=== PATIENT | male | born 1940 | race Caucasian/White ===

== ENCOUNTER 2018-05-02 09:03 | Outpatient (CLI) | payer MEDICARE, OTHER ==
[2018-05-02 10:15] LABS: CHOL/HDL RATIO 4.5 (<5.0); CHOLESTEROL 149 mg/dL; HDL CHOLESTEROL 33 mg/dL; LDL CHOLESTEROL,CALCULATED 94 mg/dL; LDL/HDL RATIO 2.8 (<3.6); VLDL CHOLESTEROL 22 mg/dL
[2018-05-02 10:17] LABS: HB2 TOTAL 16.1 g/dL; HEMOGLOBIN A1C 0.88 g/dL; HEMOGLOBIN A1C % 7.2 % (4.6-6.2)
== END 2018-05-02 09:04 | disposition home or self-care (01) ==
LOC: LAB 09:03
PROVIDERS: ATTEND Family Medicine
DX: E11.9 Type 2 diabetes mellitus without complications (principal)
CPT/HCPCS: 36415; 80061; 83036; 83721

== ENCOUNTER 2018-08-13 09:45 | Outpatient (CLI) | payer MEDICARE, OTHER ==
[2018-08-13 10:06] LABS: BASOPHILS % (AUTO) 0.7 %; EOSINOPHILS # (AUTO) 0.1 10^3/uL (0.0-0.7); EOSINOPHILS % (AUTO) 1.5 %; HGB - HEMOGLOBIN 15.1 g/dL (14.0-18.0); LYMPHOCYTES # (AUTO) 1.1 10^3/uL (1.5-3.5); LYMPHOCYTES % (AUTO) 15.8 %; MEAN CORPUSCULAR HEMOGLOBIN 30.1 pg (27.0-31.0); MEAN CORPUSCULAR HGB CONC 33.6 g/dL (32.0-36.0); MEAN CORPUSCULAR VOLUME 89.6 fL (80.0-94.0); MEAN PLATELET VOLUME 8.8 fL (7.4-11.4); MONOCYTES # (AUTO) 0.5 10^3/uL (0.0-1.0); MONOCYTES % (AUTO) 7.2 %; NEUTROPHILS # (AUTO) 5.1 10^3/uL (1.5-6.6); NEUTROPHILS % (AUTO) 74.8 %; PLT - PLATELET COUNT 215 10^3/uL (130-450); RED BLOOD COUNT 5.01 10^6/uL (4.70-6.10); RED CELL DISTRIBUTION WIDTH 14.3 % (12.0-15.0); WHITE BLOOD COUNT 6.8 x10^3/uL (4.8-10.8)
[2018-08-13 10:17] LABS: INR 1.1 (0.8-1.2); PT - PROTHROMBIN TIME 12.6 secs (9.9-12.6)
[2018-08-13 10:18] LABS: ALBUMIN 4.5 g/dL (3.2-5.5); ALBUMIN/GLOBULIN RATIO 1.7 (1.0-2.2); BILIRUBIN,TOTAL 1.3 mg/dL (0.2-1.0); CALCIUM 9.5 mg/dL (8.5-10.3); CREATININE 1.1 mg/dL (0.6-1.2); TOTAL PROTEIN 7.2 g/dL (6.7-8.2)
== END 2018-08-13 09:46 | disposition home or self-care (01) ==
LOC: LAB 09:45
PROVIDERS: ATTEND Internal Medicine Gastroenterology
DX: K75.4 Autoimmune hepatitis (principal); K74.60 Unspecified cirrhosis of liver
CPT/HCPCS: 36415; 80053; 82105; 85025; 85610

== ENCOUNTER 2018-12-09 08:24 | Outpatient (CLI) | payer MEDICARE, OTHER ==
[2018-12-09 10:03] LABS: ALBUMIN 4.3 g/dL (3.2-5.5); CALCIUM 9.8 mg/dL (8.5-10.3); CREATININE 1.4 mg/dL (0.6-1.2)
[2018-12-09 10:04] LABS: PHOSPHORUS 3.2 mg/dL (2.5-4.6)
[2018-12-09 10:23] LABS: HB2 TOTAL 15.7 g/dL; HEMOGLOBIN A1C 0.9 g/dL; HEMOGLOBIN A1C % 7.4 % (4.6-6.2)
== END 2018-12-09 08:25 | disposition home or self-care (01) ==
LOC: LAB.S 08:24
PROVIDERS: ATTEND Internal Medicine Endocrinology, Diabetes & Metabolism
DX: E11.9 Type 2 diabetes mellitus without complications (principal)
CPT/HCPCS: 36415; 80069; 83036

== ENCOUNTER 2019-02-28 10:08 | Outpatient (CLI) | payer MEDICARE, OTHER ==
[2019-02-28 18:28] LABS: HEMOGLOBIN A1C 0.9 g/dL; HEMOGLOBIN A1C % 7.6 % (4.6-6.2)
== END 2019-02-28 10:09 | disposition home or self-care (01) ==
LOC: LAB.S 10:08
PROVIDERS: ATTEND Internal Medicine Endocrinology, Diabetes & Metabolism
DX: E11.9 Type 2 diabetes mellitus without complications (principal)
CPT/HCPCS: 36415; 83036

== ENCOUNTER 2019-05-03 23:28 | Outpatient (CLI) | payer MEDICARE, OTHER | END 2019-05-03 23:29 | disposition short-term general hospital (02) | LOC: EMS 23:28 | PROVIDERS: ATTEND Surgery | DX: R11.10 Vomiting, unspecified (principal); R50.9 Fever, unspecified; R53.1 Weakness; R41.82 Altered mental status, unspecified | CPT/HCPCS: A0425; A0427 ==

== ENCOUNTER 2022-04-28 11:21 | Emergency (ER) | payer MEDICARE, OTHER ==
[2022-04-28 13:43] LABS: BASOPHILS # (AUTO) 0.1 10^3/uL (0.0-0.1); BASOPHILS % (AUTO) 0.6 %; EOSINOPHILS # (AUTO) 0.1 10^3/uL (0.0-0.7); EOSINOPHILS % (AUTO) 1.5 %; HCT - HEMATOCRIT 41.4 % (42.0-52.0); HGB - HEMOGLOBIN 13.6 g/dL (14.0-18.0); LYMPHOCYTES # (AUTO) 1.5 10^3/uL (1.5-3.5); LYMPHOCYTES % (AUTO) 17.2 %; MEAN CORPUSCULAR HGB CONC 32.9 g/dL (32.0-36.0); MEAN CORPUSCULAR VOLUME 88.3 fL (80.0-94.0); MEAN PLATELET VOLUME 10.6 fL (7.4-11.4); MONOCYTES # (AUTO) 1.1 10^3/uL (0.0-1.0); NEUTROPHILS # (AUTO) 6.1 10^3/uL (1.5-6.6); NEUTROPHILS % (AUTO) 68.3 %; PLT - PLATELET COUNT 235 10^3/uL (130-450); RED BLOOD COUNT 4.69 10^6/uL (4.70-6.10); RED CELL DISTRIBUTION WIDTH 12.6 % (12.0-15.0)
[2022-04-28 13:57] LABS: ALBUMIN 4.2 g/dL (3.2-5.5); ALBUMIN/GLOBULIN RATIO 1.3 (1.0-2.2); BILIRUBIN,TOTAL 0.8 mg/dL (0.2-1.0); CALCIUM 10.1 mg/dL (8.5-10.3); CREATININE 1.3 mg/dL (0.6-1.2); POTASSIUM 4.8 mmol/L (3.5-5.0); TOTAL PROTEIN 7.4 g/dL (6.7-8.2)
[2022-04-28 14:37] LABS: B. PARAPERTUSSIS- RESP PCR PAN NOT DETECTED; CORONAVIRUS 229E-RESP PCR NOT DETECTED; CORONAVIRUS HKU1-RESP PCR NOT DETECTED; CORONAVIRUS NL63-RESP PCR NOT DETECTED; CORONAVIRUS OC43-RESP PCR NOT DETECTED; HUMAN METAPNEUMOVIRUS NOT DETECTED; INFLUENZA A- RESP PCR PANEL NOT DETECTED; INFLUENZA B - RESP PCR PANEL NOT DETECTED; PARAINFLUENZA VIRUS 1 NOT DETECTED; PARAINFLUENZA VIRUS 2 NOT DETECTED; PARAINFLUENZA VIRUS 3 NOT DETECTED; PARAINFLUENZA VIRUS 4 NOT DETECTED; RHINOVIRUS/ENTEROVIRUS DETECTED; RSV- RESP PCR PANEL NOT DETECTED; SARS-CoV-2 -RESP PCR PANEL NOT DETECTED
[2022-04-28 14:39] LABS: B. PERTUSSIS- RESP PCR PANEL NOT DETECTED; C. PNEUMONIAE- RESP PCR PANEL NOT DETECTED; M. PNEUMONIAE- RESP PCR PANEL NOT DETECTED
[2022-04-28] MEDS ORDERED: SODIUM CHLORIDE 0.9% 1,000 ML IV STA (14:47)
--- NOTE | 2022-04-28 14:53 | ED Physician Documentation ---
History of Present Illness - Stated complaint Stated Complaint: DIZZY/SHAKY - Chief complaint Chief Complaint: Resp - History obtained from History obtained from: Patient, Family - History of Present Illness Timing: How many weeks ago (3) Pain level max: 0 Pain level now: 0 - Additonal information Additional information: Patient is a 82-year-old male brought in by family today for cough x3 weeks. Not having any pain. No fevers. No chills. Family states that he was dizzy when he stood up today and family states that he has been "out of it". Nothing makes it better or worse. No abdominal pain. No vomiting. No diarrhea. Review of Systems Constitutional: denies: Fever, Chills Nose: reports: Rhinorrhea / runny nose, Congestion Throat: denies: Sore throat Cardiac: denies: Chest pain / pressure Respiratory: reports: Cough. denies: Dyspnea GI: denies: Abdominal Pain, Nausea, Vomiting, Diarrhea Skin: denies: Rash Musculoskeletal: denies: Neck pain, Back pain Neurologic: denies: Headache PD PAST MEDICAL HISTORY - Past Medical History Cardiovascular: Hypertension Respiratory: None Endocrine/Autoimmune: Type 2 diabetes GI: Other : None Psych: None Musculoskeletal: None Derm: Other - Past Surgical History Past Surgical History: Yes Derm: Skin cancer surgery - Present Medications Home Medications: Ambulatory Orders Medication Instructions Recorded Confirmed Aspirin [Aspir 81] 81 mg PO DAILY 02/23/14 01/26/15 Insulin Glargine [Lantus Solostar] 8 units SUBQ DAILY 02/23/14 01/26/15 Simvastatin 20 mg PO DAILY 02/23/14 01/26/15 Telmisartan/Amlodipine 80 mg PO DAILY 02/23/14 01/26/15 [Telmisartan-Amlodipine 80-5 mg] azaTHIOprine [Azathioprine] 50 mg PO DAILY 02/23/14 01/26/15 hydroCHLOROthiazide 25 mg PO DAILY 02/23/14 01/26/15 [Hydrochlorothiazide] Insulin Aspart [Novolog Flexpen] 0 units SUBQ TIDACHS 02/24/14 01/26/15 Cephalexin [Keflex] 500 mg PO Q6H #28 capsule 01/26/15 - Allergies Allergies/Adverse Reactions: Allergies Allergy/AdvReac Type Severity Reaction Status Date / Time No Known Drug Allergies Allergy Verified 04/28/22 13:04 - Social History Does the pt smoke?: No Smoking Status: Never smoker Does the pt drink ETOH?: No Does the pt have substance abuse?: No - Immunizations Immunizations are current?: Yes - POLST Patient has POLST: Yes PD ED PE NORMAL - Vitals Vital signs reviewed: Yes - General General: Alert and oriented X 3, No acute distress - HEENT HEENT: PERRL, Ears normal, Moist mucous membranes, Pharynx benign - Neck Neck: Supple, no meningeal sign - Cardiac Cardiac: RRR, Strong equal pulses - Respiratory Respiratory: No respiratory distress, Clear bilaterally - Abdomen Abdomen: Soft, Non tender, Non distended - Derm Derm: Warm and dry - Neuro Neuro: Alert and oriented X 3 - Psych Psych: Normal mood, Normal affect Results - Vitals Vitals: Vital Signs - 24 hr 04/28/22 04/28/22 04/28/22 13:01 15:14 16:37 Temperature 36.8 C Heart Rate 61 59 L 78 Respiratory 18 18 18 Rate Blood Pressure 144/72 H 137/61 H 137/61 H O2 Saturation 98 100 96 Oxygen O2 Source Room air - EKG (time done) 1308 Rate: Rate (enter#) (61) Rhythm: Paced (atrial) [place]: Anterior hemiblock (LAFB) Intervals: RBBB - Labs Labs: Laboratory Tests 04/28/22 04/28/22 04/28/22 13:10 13:13 13:39 WBC 9.0 RBC 4.69 L Hgb 13.6 L Hct 41.4 L MCV 88.3 MCH 29.0 MCHC 32.9 RDW 12.6 Plt Count 235 MPV 10.6 Neut # (Auto) 6.1 Lymph # (Auto) 1.5 [place] # (Auto) 1.1 H Eos # (Auto) 0.1 Baso # (Auto) 0.1 Absolute Nucleated RBC 0.00 Nucleated RBC % 0.0 Sodium Potassium Chloride Carbon Dioxide Anion Gap BUN Creatinine Estimated GFR (MDRD) Glucose POC Whole Bld Glucose 200 H Calcium Total Bilirubin AST ALT Alkaline Phosphatase Total Protein Albumin Globulin Albumin/Globulin Ratio Lipase Nasal Adenovirus (PCR) NOT DETECTED Nasal B. parapertussis DNA (PCR) NOT DETECTED Nasal Coronavir 229E PCR NOT DETECTED Nasal Coronavir HKU1 PCR NOT DETECTED Nasal Coronavir NL63 PCR NOT DETECTED Nasal Coronavir OC43 PCR NOT DETECTED Nasal Enterovir/Rhinovir PCR DETECTED A Nasal Influenza B PCR NOT DETECTED Nasal Influenza A PCR NOT DETECTED Nasal Parainfluen 1 PCR NOT DETECTED Nasal Parainfluen 2 PCR NOT DETECTED Nasal Parainfluen 3 PCR NOT DETECTED Nasal Parainfluen 4 PCR NOT DETECTED Nasal RSV (PCR) NOT DETECTED Nasal B.pertussis DNA PCR NOT DETECTED Nasal C.pneumoniae (PCR) NOT DETECTED Nam Human Metapneumo PCR NOT DETECTED Nasal M.pneumoniae (PCR) NOT DETECTED Nasal SARS-CoV-2 (PCR) NOT DETECTED 04/28/22 13:39 WBC RBC Hgb Hct MCV MCH MCHC RDW Plt Count MPV Neut # (Auto) Lymph # (Auto) [place] # (Auto) Eos # (Auto) Baso # (Auto) Absolute Nucleated RBC Nucleated RBC % Sodium 134 L Potassium 4.8 Chloride 95 L Carbon Dioxide 28 Anion Gap 11.0 BUN 20 Creatinine 1.3 H Estimated GFR (MDRD) 53 L Glucose 202 H POC Whole Bld Glucose Calcium 10.1 Total Bilirubin 0.8 AST 23 ALT 29 Alkaline Phosphatase 63 Total Protein 7.4 Albumin 4.2 Globulin 3.2 Albumin/Globulin Ratio 1.3 Lipase 25 Nasal Adenovirus (PCR) Nasal B. parapertussis DNA (PCR) Nasal Coronavir 229E PCR Nasal Coronavir HKU1 PCR Nasal Coronavir NL63 PCR Nasal Coronavir OC43 PCR Nasal Enterovir/Rhinovir PCR Nasal Influenza B PCR Nasal Influenza A PCR Nasal Parainfluen 1 PCR Nasal Parainfluen 2 PCR Nasal Parainfluen 3 PCR Nasal Parainfluen 4 PCR Nasal RSV (PCR) Nasal B.pertussis DNA PCR Nasal C.pneumoniae (PCR) Nam Human Metapneumo PCR Nasal M.pneumoniae (PCR) Nasal SARS-CoV-2 (PCR) - Rads (name of study) Chest x-ray Radiology: Final report received, EMP read contemporaneously, See rad report PD MEDICAL DECISION MAKING - ED course Complexity details: reviewed results, re-evaluated patient, considered differential, d/w patient, d/w family ED course: No acute abnormalities on chest x-ray. Patient is positive for rhinovirus. No significant laboratory abnormalities. Eating and drinking without difficulty here. Patient is well-appearing, nontoxic. Afebrile. No hypoxia. No respiratory distress. Patient and family counseled regarding signs and symptoms for which I believe and urgent re-evaluation would be necessary. Patient with good understanding of and agreement to plan and is comfortable going home at this time This document was made in part using voice recognition software. While efforts are made to proofread this document, sound alike and grammatical errors may occur. Departure - Departure Disposition: 01 Home, Self Care Clinical Impression: Rhinovirus, Dehydration Condition: Good Instructions: ED Viral Syndrome Follow-Up: AMINAH MACILE MD [Primary Care Provider] - As Needed Comments: Your x-ray does not show any acute abnormalities today. You are positive for rhinovirus/enterovirus. Please follow-up with your doctor for further care. Make sure you are drinking plenty of fluids. Return if you worsen. Discharge Date/Time: 04/28/22 16:37
--- NOTE | 2022-04-28 15:13 | XRAY Report ---
PROCEDURE: Chest 2 View X-Ray INDICATIONS: cough x3 weeks TECHNIQUE: 2 views of the chest were acquired. COMPARISON: CXR 02/24/2014. FINDINGS: Surgical changes and devices: Left pacemaker with right atrial and right ventricular leads. Lungs and pleura: No pleural effusions or pneumothorax. Lungs are clear. No consolidation. Mediastinum: Mediastinal contours are unchanged. Heart size is normal. Bones and chest wall: No suspicious bony abnormalities. Soft tissues appear unremarkable. IMPRESSION: No acute cardiopulmonary abnormality. CT of the chest could be considered for further evaluation. Reviewed by: Marc Garcia MD on 04/28/2022 3:11 PM PST Approved by: Marc Garcia MD on 04/28/2022 3:11 PM PST Station ID: [id number]
[2022-04-28 15:42] VITALS: BP 137/61
== END 2022-04-28 16:37 | disposition home or self-care (01) ==
LOC: ED 11:21
DX: B34.8 Other viral infections of unspecified site (principal); E86.0 Dehydration; R42 Dizziness and giddiness; I45.2 Bifascicular block; Z95.0 Presence of cardiac pacemaker; I10 Essential (primary) hypertension; E11.9 Type 2 diabetes mellitus without complications; Z79.4 Long term (current) use of insulin; Z79.82 Long term (current) use of aspirin
CPT/HCPCS: 36415; 80053; 83690; 85025; 87633; 93005; 96360; 99283

== ENCOUNTER 2023-01-10 14:52 | Emergency (ER) | payer MEDICARE, OTHER ==
[2023-01-10 15:29] LABS: BASOPHILS % (AUTO) 0.5 %; EOSINOPHILS # (AUTO) 0.1 10^3/uL (0.0-0.7); EOSINOPHILS % (AUTO) 2.2 %; HCT - HEMATOCRIT 43.3 % (42.0-52.0); HGB - HEMOGLOBIN 14.1 g/dL (14.0-18.0); LYMPHOCYTES # (AUTO) 1.5 10^3/uL (1.5-3.5); LYMPHOCYTES % (AUTO) 24.7 %; MEAN CORPUSCULAR HEMOGLOBIN 29.1 pg (27.0-31.0); MEAN CORPUSCULAR HGB CONC 32.6 g/dL (32.0-36.0); MEAN CORPUSCULAR VOLUME 89.5 fL (80.0-94.0); MEAN PLATELET VOLUME 11.2 fL (7.4-11.4); MONOCYTES # (AUTO) 0.5 10^3/uL (0.0-1.0); MONOCYTES % (AUTO) 8.8 %; NEUTROPHILS # (AUTO) 3.7 10^3/uL (1.5-6.6); NEUTROPHILS % (AUTO) 63.1 %; PLT - PLATELET COUNT 185 10^3/uL (130-450); RED BLOOD COUNT 4.84 10^6/uL (4.70-6.10); RED CELL DISTRIBUTION WIDTH 13.6 % (12.0-15.0); WHITE BLOOD COUNT 5.9 x10^3/uL (4.8-10.8)
[2023-01-10 15:49] LABS: ALBUMIN 4.4 g/dL (3.2-5.5); ALBUMIN/GLOBULIN RATIO 1.9 (1.0-2.2); BILIRUBIN,TOTAL 0.6 mg/dL (0.2-1.0); CREATININE 1.4 mg/dL (0.6-1.3); POTASSIUM 3.7 mmol/L (3.5-4.5); TOTAL PROTEIN 6.7 g/dL (6.4-8.9)
[2023-01-10 15:52] LABS: TROPONIN I HIGH SENSITIVITY 6.3 ng/L (2.3-19.7)
--- NOTE | 2023-01-10 15:52 | XRAY Report ---
PROCEDURE: Chest 1 View X-Ray INDICATIONS: Chest Pain TECHNIQUE: One view of the chest was acquired. COMPARISON: Chest radiographs 04/28/2022. FINDINGS: Surgical changes and devices: A cardiac pacemaker is seen with pulse generator in the left chest. Lungs and pleura: No pleural effusions or pneumothorax. Lungs are clear. Mediastinum: Mediastinal contours appear normal. Heart size is normal. Bones and chest wall: No suspicious bony lesions. Overlying soft tissues appear unremarkable. IMPRESSION: No acute cardiopulmonary process. Reviewed by: Dwayne Sandoval MD on 01/10/2023 3:51 PM PDT Approved by: Dwayne Sandoval MD on 01/10/2023 3:51 PM PDT Station ID: [id number]
[2023-01-10] MEDS ORDERED: iohexoL-300 100 ML VIAL IVP ONE (16:17)
--- NOTE | 2023-01-10 16:30 | ED Physician Documentation ---
PD HPI FOCAL NEURO - Stated complaint Stated Complaint: ARM NUMBNESS - Chief complaint Chief Complaint: Cardiac - History obtained from History obtained from: Patient - History of Present Illness Associated symptoms: No: Headache, Nausea / vomiting, Seizure, Syncope, Fall, Head injury, Chest pain, Neck pain, Back pain, Fever Contributing factors: positive: Anticoagulated (eliquis) Baseline status: positive: A&OX3, ambulatory, indep - Additional information Additional information: 82-year-old male states that he woke up from a nap and felt that his eyelids were vibrating and his chest was vibrating. He states that it felt like his left arm was cold but did not have any numbness or weakness. No speech di fficulties. No facial droop. He states it lasted for a few minutes and then resolved. He is currently asymptomatic. He states he thinks he "had an atrial fibrillation event". He states he has never had atrial fibrillation in the past. He does have a pacemaker. No headache. No trauma. No fevers. No chills. No recent illnesses. Currently fully asymptomatic. Review of Systems Constitutional: denies: Fever, Chills Respiratory: denies: Cough GI: denies: Nausea, Vomiting, Diarrhea Skin: denies: Rash Musculoskeletal: denies: Neck pain, Back pain Neurologic: denies: Focal weakness, Numbness, Headache PD PAST MEDICAL HISTORY - Past Medical History Cardiovascular: Hypertension Respiratory: None Endocrine/Autoimmune: Type 2 diabetes GI: Other : None Psych: None Musculoskeletal: None Derm: Other - Past Surgical History Past Surgical History: Yes Derm: Skin cancer surgery - Present Medications Home Medications: Ambulatory Orders Medication Instructions Recorded Confirmed Insulin Glargine [Lantus Solostar] 26 units SUBQ HS 02/23/14 01/10/23 Insulin Aspart [Novolog Flexpen] 0 units SUBQ TIDACHS 02/24/14 01/10/23 Apixaban [Eliquis] 5 mg PO BID 01/10/23 01/10/23 Metoprolol Tartrate [Lopressor] 25 mg PO BID 01/10/23 01/10/23 Rosuvastatin Calcium 20 mg PO HS 01/10/23 01/10/23 Tamsulosin [Flomax] 1 cap PO 01/10/23 01/10/23 - Allergies Allergies/Adverse Reactions: Allergies Allergy/AdvReac Type Severity Reaction Status Date / Time No Known Drug Allergies Allergy Verified 01/10/23 15:25 - Social History Does the pt smoke?: No Smoking Status: Never smoker Does the pt drink ETOH?: No Does the pt have substance abuse?: No - Immunizations Immunizations are current?: Yes - POLST Patient has POLST: Yes PD ED PE NORMAL - Vitals Vital signs reviewed: Yes - General General: Alert and oriented X 3, No acute distress - HEENT HEENT: Atraumatic, PERRL, EOMI, Moist mucous membranes - Neck Neck: Supple, no meningeal sign - Cardiac Cardiac: RRR, Strong equal pulses - Respiratory Respiratory: No respiratory distress, Clear bilaterally - Abdomen Abdomen: Soft, Non tender, Non distended - Back Back: No CVA TTP, No spinal TTP - Derm Derm: Warm and dry - Extremities Extremities: No edema, No calf tenderness / cord, Other (arms are equal temperature) - Neuro Neuro: Alert and oriented X 3, report specialist 2-12 intact, No motor deficit, No sensory deficit, Normal speech Eye Opening: Spontaneous Motor: Obeys Commands Verbal: Oriented GCS Score: 15 - Psych Psych: Normal mood, Normal affect NIHSS - Time Time: 15:10 - Level of Consciousness Level of consciousness: (0) Alert, Keenly responsive LOC Questions: (0) Answers both Q's correct LOC Commands: (0) Performs both correctly - Gaze Best Gaze: (0) Normal - Visual Visual: (0) No loss - Facial Palsy Facial Palsy: (0) Normal, symmetrical movement - Motor Arms (both separate) Motor Arm (right): (0) No drift Motor Arm (left): (0) No drift - Motor Legs (both separate) Motor Leg (right): (0) No drift Motor Leg (left): (0) No drift - Limb Ataxia Limb Ataxia: (0) Absent - Sensory Sensory: (0) Normal - Best Language Best Language: (0) No aphasia - Dysarthria Dysarthria: (0) Normal - Extinction and Inattention (formally neg Extinction and inattention: (0) No abnormality - Total Score/Results Total Score/Result: 0 Results - Vitals Vitals: Vital Signs - 24 hr 01/10/23 01/10/23 01/10/23 14:56 15:05 15:30 Temperature 37.0 C Heart Rate 61 69 66 Respiratory 18 17 14 Rate Blood Pressure 167/81 H 188/68 H 164/83 H O2 Saturation 97 100 97 01/10/23 17:23 Temperature Heart Rate 74 Respiratory 16 Rate Blood Pressure 151/73 H O2 Saturation 100 Oxygen O2 Source Room air - EKG (time done) 1805 EKG releavant findings:: EKG personally interpreted by author of this note. Relevant findings are: Rate: Rate (enter#) (81) Rhythm: Paced - Labs Labs: Laboratory Tests 01/10/23 01/10/23 15:14 15:14 WBC 5.9 RBC 4.84 Hgb 14.1 Hct 43.3 MCV 89.5 MCH 29.1 MCHC 32.6 RDW 13.6 Plt Count 185 MPV 11.2 Neut # (Auto) 3.7 Lymph # (Auto) 1.5 [place] # (Auto) 0.5 Eos # (Auto) 0.1 Baso # (Auto) 0.0 Absolute Nucleated RBC 0.00 Nucleated RBC % 0.0 Sodium 137 Potassium 3.7 Chloride 103 Carbon Dioxide 31 Anion Gap 3.0 L BUN 22 H Creatinine 1.4 H Estimated GFR (MDRD) 49 L Glucose 175 H Calcium 10.0 Total Bilirubin 0.6 AST 19 ALT 16 Alkaline Phosphatase 59 Troponin I High Sens 6.3 Total Protein 6.7 Albumin 4.4 Globulin 2.3 Albumin/Globulin Ratio 1.9 Lipase 17 - Rads (name of study) head CT Relevant Findings:: Final report received, See rad report PD Medical Decision Making - ED course Complexity details: reviewed results, re-evaluated patient, considered differential, d/w patient ED course: Patient with a fluttering vibration in his chest and eyelids earlier today. He also states that his left arm was cold. Symptoms all resolved within a few minutes. Asymptomatic here. Pacemaker was interrogated with no abnormalities found. No evidence of atrial fibrillation or flutter. Labs are normal, CT head and angiogram of the head and neck are normal. Troponin is negative. Unclear etiology of his symptoms. Will have him follow-up with his doctor for further care and continue his current medications. Patient counseled regarding signs and symptoms for which I believe and urgent re-evaluation would be necessary. Patient with good understanding of and agreement to plan and is comfortable going home at this time This document was made in part using voice recognition software. While efforts are made to proofread this document, sound alike and grammatical errors may occur. Departure - Departure Disposition: 01 Home, Self Care Clinical Impression: Palpitations, Paresthesia Condition: Good Instructions: ED Palpitations, ED Paraesthesias Follow-Up: AMINAH MACIEL MD [Primary Care Provider] - Within 1 week Comments: The cause of your symptoms is unclear today. Your testing does not show any acute abnormalities. Please follow-up with your doctor for further care. There are no acute findings on your CT scans, laboratory testing, pacemaker interrogation or EKG. Forms: PCP List Discharge Date/Time: 01/10/23 17:25
--- NOTE | 2023-01-10 16:46 | CT Report ---
PROCEDURE: HEAD WO INDICATIONS: L arm "cool" TECHNIQUE: Noncontrast 4.5 mm thick angled axial sections acquired from the foramen magnum to the vertex. For r adiation dose reduction, the following was used: automated exposure control, adjustment of mA and/or kV according to patient size. COMPARISON: None. FINDINGS: Image quality: Excellent. CSF spaces: Basal cisterns are patent. No extra-axial fluid collections. Ventricles are normal in size and shape. Brain: No midline shift. No intracranial masses or hemorrhage. Garcia-white matter interface is norm al. Age-related volume loss and moderate small vessel ischemic change. Skull and face: Calvarium and visualized facial bones are intact, without suspicious lesions. Sinuses: Visualized sinuses and mastoids are clear. IMPRESSION: 1. Age-related volume loss and moderate small vessel ischemic change. 2. No acute intracranial abnormality. Reviewed by: Itz Monroe MD on 01/10/2023 4:45 PM PDT Approved by: Itz Monroe MD on 01/10/2023 4:45 PM PDT Station ID: [id number]
--- NOTE | 2023-01-10 17:01 | CT Report ---
PROCEDURE: CT Angio Head/Neck INDICATIONS: L arm "cool" TECHNIQUE: Pre-contrast 4.5 mm thick sections acquired from the foramen magnum to the vertex. After the adminis tration of intravenous contrast, 1 mm thick sections acquired from the aortic arch through the [place] of [place]. Post-contrast 4.5 mm thick sections then re-acquired from the foramen magnum to the vert ex. 3-dimensional gyahwpr-ymtigzhgy-lwwfamlseo (MIP) and/or volume rendering reformats were acquired of the central intracranial vasculature and neck separately. For radiation dose reduction, the foll owing was used: automated exposure control, adjustment of mA and/or kV according to patient size. CONTRAST: See chart notes COMPARISON: CT head without contrast from today FINDINGS: Image quality: Excellent. BRAIN: CSF spaces: Ventricles are normal in size and shape. Basal cisterns are patent. No extra-axial flu id collections. Brain: No midline shift. No intracranial bleeds or masses. Garcia-white matter interface appears int act. Age-related volume loss and moderate small vessel ischemic change. Skull and face: Calvarium and facial bones appear intact, without suspicious lesions. Orbits appear normal. Sinuses: Sinuses and mastoids are clear. HEAD CT ANGIOGRAPHY: Anterior circulation: Intracranial internal carotid arteries are normal in size and flow. The flow within the paired anterior cerebral arteries is normal and symmetric. The flow within the middle cer ebral arteries is normal and symmetric. The anterior communicating artery is seen. No aneurysms are seen. Posterior circulation: Visualized portions of the vertebral arteries demonstrate normal caliber, and join to form a normal appearing basilar artery. Flow within the posterior cerebral arteries is norm al and symmetric. No aneurysms are seen. NECK CT ANGIOGRAPHY: Carotid system: The great vessels demonstrate a conventional anatomy as they arise from the aortic a rch. The origins of the common carotid arteries appear patent. The common carotid arteries demonstr ate normal caliber and courses. The bifurcation regions are both widely patent. The internal caroti d arteries demonstrate normal calibers and courses. Bilateral proximal internal carotid artery plaque without stenosis. Posterior circulation: The origins of the vertebral arteries both appear widely patent. The more lin perior extracranial portions of both vertebral arteries also demonstrate normal courses and calibers. They join to form a normal appearing basilar artery. Soft tissues: Visualized neck soft tissues demonstrate no suspicious abnormalities. Bones: No suspicious bony lesions. Visualized cervical spine appears normally aligned. IMPRESSION: 1. Age-related volume loss and moderate small vessel ischemic change. 2. No acute intracranial process. 3. Unremarkable CTA head. No stenosis, aneurysm, occlusion, or focal filling defect. 4. No carotid stenosis. The estimate of stenosis included in the report of the imaging study was calculated using the NASCET method Reviewed by: Itz Monroe MD on 01/10/2023 5:00 PM PDT Approved by: Itz Monroe MD on 01/10/2023 5:00 PM PDT Station ID: [id number]
[2023-01-10 17:26] VITALS: BP 151/73; O2SAT 100
== END 2023-01-10 17:25 | disposition home or self-care (01) ==
LOC: ED 14:52
DX: R20.0 Anesthesia of skin (principal); R00.2 Palpitations; I10 Essential (primary) hypertension; E11.9 Type 2 diabetes mellitus without complications; Z79.4 Long term (current) use of insulin
CPT/HCPCS: 36415; 70450; 70496; 70498; 71045; 80053; 83690; 84484; 85025; 93005; 99283; 99284; Q9967

== ENCOUNTER 2023-10-09 18:35 | Outpatient (CLI) | payer MEDICARE, OTHER | END 2023-10-09 23:59 | disposition critical access hospital (66) | LOC: EMS 18:35 | DX: R25.1 Tremor, unspecified (principal); Z86.19 Personal history of other infectious and parasitic diseases; E11.9 Type 2 diabetes mellitus without complications; R11.2 Nausea with vomiting, unspecified | CPT/HCPCS: A0425; A0429 ==

== ENCOUNTER 2023-10-09 19:07 | Emergency (ER) | payer MEDICARE, OTHER ==
--- NOTE | 2023-10-09 19:24 | ED Physician Documentation ---
History of Present Illness - Stated complaint Stated Complaint: UNCONTROLLED SHIVERING - Chief complaint Chief Complaint: General - History obtained from History obtained from: Patient, Family, EMS - History of Present Illness Timing: Today Pain level max: 0 Pain level now: 0 - Additonal information Additional information: 83-year-old male to the emergency department stating that he feels like he "has sepsis". When asked what that means to him he states that he felt lightheaded earlier today like things were spinning and had shaking. He states he is not having pain anywhere but now just feels nauseated. His states that he has been coughing frequently. He states he has a "mild cough". He states that he has had sepsis twice in the past, the last time was due to an infected gallbladder which has since been removed. He does have a pacemaker in the left upper chest. No urinary symptoms. No abdominal pain. Feels mildly nauseated now. Does not feel like he is spinning anymore. No fevers at home. Review of Systems Constitutional: denies: Fever, Chills Nose: reports: Rhinorrhea / runny nose, Congestion Cardiac: denies: Chest pain / pressure, Palpitations Respiratory: reports: Cough. denies: Dyspnea, Wheezing GI: denies: Nausea, Vomiting, Diarrhea Skin: denies: Rash Musculoskeletal: denies: Neck pain, Back pain Neurologic: denies: Headache PD PAST MEDICAL HISTORY - Past Medical History Cardiovascular: Hypertension Respiratory: None Endocrine/Autoimmune: Type 2 diabetes GI: Other : None Psych: None Musculoskeletal: None Derm: Other - Past Surgical History Past Surgical History: Yes General: Cholecystectomy Cardiovascular: Pacemaker Derm: Skin cancer surgery - Present Medications Home Medications: Ambulatory Orders Medication Instructions Recorded Confirmed Insulin Glargine [Lantus Solostar] 26 units SUBQ 02/23/14 01/10/23 Insulin Aspart [Novolog Flexpen] 0 units SUBQ TIDACHS 02/24/14 01/10/23 Apixaban [Eliquis] 5 mg PO BID 01/10/23 01/10/23 Metoprolol Tartrate [Lopressor] 25 mg PO BID 01/10/23 01/10/23 Rosuvastatin Calcium 20 mg PO 01/10/23 01/10/23 Tamsulosin [Flomax] 1 cap PO 01/10/23 01/10/23 - Allergies Allergies/Adverse Reactions: Allergies Allergy/AdvReac Type Severity Reaction Status Date / Time No Known Drug Allergies Allergy Verified 10/09/23 19:21 - Social History Does the pt smoke?: No Smoking Status: Never smoker Does the pt drink ETOH?: No Does the pt have substance abuse?: No - Immunizations Immunizations are current?: Yes - POLST Patient has POLST: Yes PD ED PE NORMAL - Vitals Vital signs reviewed: Yes - General General: Alert and oriented X 3, No acute distress - HEENT HEENT: PERRL, Moist mucous membranes - Neck Neck: Supple, no meningeal sign - Cardiac Cardiac: RRR, Strong equal pulses - Respiratory Respiratory: No respiratory distress, Clear bilaterally - Abdomen Abdomen: Soft, Non tender, Non distended - Derm Derm: Warm and dry - Neuro Neuro: Alert and oriented X 3 - Psych Psych: Normal mood, Normal affect Results - Vitals Vitals: Vital Signs - 24 hr 10/09/23 19:17 Temperature 37.5 C Heart Rate 64 Respiratory 18 Rate Blood Pressure 123/86 H O2 Saturation 97 Oxygen O2 Source Room air - Labs Labs: Laboratory Tests 10/09/23 10/09/23 10/09/23 19:23 19:31 19:31 WBC 2.7 L RBC 5.21 Hgb 15.4 Hct 46.5 MCV 89.3 MCH 29.6 MCHC 33.1 RDW 13.7 Plt Count 153 MPV 10.9 Neut # (Auto) Not Reportable Lymph # (Auto) Not Reportable [place] # (Auto) Not Reportable Eos # (Auto) Not Reportable Baso # (Auto) Not Reportable Absolute Nucleated RBC Not Reportable Total Counted 100 Band Neuts % (Manual) 9 Abnorm Lymph % (Manual) 0 Nucleated RBC % Not Reportable Neutrophils # (Manual) 2.5 Lymphocytes # (Manual) 0.2 L Monocytes # (Manual) 0.0 Eosinophils # (Manual) 0.0 Basophils # (Manual) 0.0 Differential Comment MANUAL DIFFERENTIAL WBC Morphology 1+ HYPERSEG NEUT Platelet Estimate NORMAL (130-450,000) Platelet Morphology NORMAL APPEARANCE RBC Morph Micro Appear NORMAL APPEARANCE PT 14.0 H INR 1.3 H APTT 24.3 L Sodium Potassium Chloride Carbon Dioxide Anion Gap BUN Creatinine Estimated GFR (MDRD) Glucose Lactic Acid Calcium Total Bilirubin AST ALT Alkaline Phosphatase Total Protein Albumin Globulin Albumin/Globulin Ratio Lipase Urine Color Urine Clarity Urine pH Ur Specific [place] Urine Protein Urine Glucose (UA) Urine Ketones Urine Occult Blood Urine Nitrite Urine Bilirubin Urine Urobilinogen Ur Leukocyte Esterase Ur Microscopic Review Urine Culture Comments Nasal Adenovirus (PCR) NOT DETECTED Nasal B. parapertussis DNA (PCR) NOT DETECTED Nasal Coronavir 229E PCR NOT DETECTED Nasal Coronavir HKU1 PCR NOT DETECTED Nasal Coronavir NL63 PCR NOT DETECTED Nasal Coronavir OC43 PCR NOT DETECTED Nasal Enterovir/Rhinovir PCR NOT DETECTED Nasal Influenza B PCR NOT DETECTED Nasal Influenza A PCR NOT DETECTED Nasal Parainfluen 1 PCR NOT DETECTED Nasal Parainfluen 2 PCR NOT DETECTED Nasal Parainfluen 3 PCR NOT DETECTED Nasal Parainfluen 4 PCR NOT DETECTED Nasal RSV (PCR) NOT DETECTED Nasal B.pertussis DNA PCR NOT DETECTED Nasal C.pneumoniae (PCR) NOT DETECTED Nam Human Metapneumo PCR NOT DETECTED Nasal M.pneumoniae (PCR) NOT DETECTED Nasal SARS-CoV-2 (PCR) NOT DETECTED 10/09/23 10/09/23 10/09/23 19:31 19:31 20:16 WBC RBC Hgb Hct MCV MCH MCHC RDW Plt Count MPV Neut # (Auto) Lymph # (Auto) [place] # (Auto) Eos # (Auto) Baso # (Auto) Absolute Nucleated RBC Total Counted Band Neuts % (Manual) Abnorm Lymph % (Manual) Nucleated RBC % Neutrophils # (Manual) Lymphocytes # (Manual) Monocytes # (Manual) Eosinophils # (Manual) Basophils # (Manual) Differential Comment WBC Morphology Platelet Estimate Platelet Morphology RBC Morph Micro Appear PT INR APTT Sodium 140 Potassium 3.8 Chloride 104 Carbon Dioxide 28 Anion Gap 8.0 BUN 22 H Creatinine 1.4 H Estimated GFR (MDRD) 49 L Glucose 129 H Lactic Acid 1.9 Calcium 10.0 Total Bilirubin 0.9 AST 53 H ALT 34 Alkaline Phosphatase 74 Total Protein 6.8 Albumin 4.5 Globulin 2.3 Albumin/Globulin Ratio 2.0 Lipase 13 Urine Color YELLOW Urine Clarity CLEAR Urine pH 6.5 Ur Specific [place] 1.020 Urine Protein NEGATIVE Urine Glucose (UA) >=1000 H Urine Ketones NEGATIVE Urine Occult Blood TRACE-INTA Urine Nitrite NEGATIVE Urine Bilirubin NEGATIVE Urine Urobilinogen 0.2 (NORMAL) Ur Leukocyte Esterase NEGATIVE Ur Microscopic Review NOT INDICATED Urine Culture Comments NOT INDICATED Nasal Adenovirus (PCR) Nasal B. parapertussis DNA (PCR) Nasal Coronavir 229E PCR Nasal Coronavir HKU1 PCR Nasal Coronavir NL63 PCR Nasal Coronavir OC43 PCR Nasal Enterovir/Rhinovir PCR Nasal Influenza B PCR Nasal Influenza A PCR Nasal Parainfluen 1 PCR Nasal Parainfluen 2 PCR Nasal Parainfluen 3 PCR Nasal Parainfluen 4 PCR Nasal RSV (PCR) Nasal B.pertussis DNA PCR Nasal C.pneumoniae (PCR) Nam Human Metapneumo PCR Nasal M.pneumoniae (PCR) Nasal SARS-CoV-2 (PCR) - Rads (name of study) cxr Relevant Findings:: Final report received, See rad report PD Medical Decision Making - ED course Complexity details: reviewed results, re-evaluated patient ( to the), considered differential, d/w patient, d/w family ED course: 83-year-old male presents with a cough. He was concerned about sepsis. No evidence of pneumonia on chest x-ray. Lactate is normal. No tachycardia. No hypoxia or respiratory distress. Symptoms resolved fully in the emergency department and he states that he "feels great". Urinalysis is clear. Respiratory PCR is negative. Patient is well-appearing, nontoxic. Afebrile. Blood cultures were drawn, no indication for antibiotics at this time. As the patient is now fully asymptomatic and at his normal baseline. Will have him follow-up with his doctor for further care. Patient counseled regarding signs and symptoms for which I believe and urgent re-evaluation would be necessary. Patient with good understanding of and agreement to plan and is comfortable going home at this time This document was made in part using voice recognition software. While efforts are made to proofread this document, sound alike and grammatical errors may occur. Departure - Departure Disposition: 01 Home, Self Care Clinical Impression: Viral syndrome Cough Qualifiers: Cough type: unspecified Qualified Code(s): R05.9 - Cough, unspecified Condition: Good Instructions: ED Viral Syndrome Follow-Up: AMINAH MACIEL MD [Primary Care Provider] - Within 1 week Comments: Please follow-up with your doctor for further care. Please return if you worsen. Your chest x-ray, laboratory testing, urinalysis and respiratory panel are all negative today. Your symptoms have resolved. You did have blood cultures drawn, we will call you if these turn positive. Make sure you are drinking plenty of fluids at home. Forms: PCP List Discharge Date/Time: 10/09/23 21:21
[2023-10-09 19:25] VITALS: BP 123/86; O2SAT 97
[2023-10-09 19:41] LABS: BASOPHILS % (AUTO) 0.4 %; EOSINOPHILS % (AUTO) 0.4 %; HCT - HEMATOCRIT 46.5 % (42.0-52.0); HGB - HEMOGLOBIN 15.4 g/dL (14.0-18.0); MEAN CORPUSCULAR HEMOGLOBIN 29.6 pg (27.0-31.0); MEAN CORPUSCULAR HGB CONC 33.1 g/dL (32.0-36.0); MEAN CORPUSCULAR VOLUME 89.3 fL (80.0-94.0); MEAN PLATELET VOLUME 10.9 fL (7.4-11.4); MONOCYTES % (AUTO) 0.4 %; NEUTROPHILS % (AUTO) 94.4 %; PLT - PLATELET COUNT 153 10^3/uL (130-450); RED BLOOD COUNT 5.21 10^6/uL (4.70-6.10); RED CELL DISTRIBUTION WIDTH 13.7 % (12.0-15.0); WHITE BLOOD COUNT 2.7 x10^3/uL (4.8-10.8)
[2023-10-09 19:47] LABS: ABNORMAL LYMPHS % (MANUAL) 0 %
[2023-10-09 19:53] LABS: PARTIAL THROMBOPLASTIN TIME 24.3 secs (24.9-33.3)
--- NOTE | 2023-10-09 19:56 | XRAY Report ---
PROCEDURE: Chest 1V INDICATIONS: cough TECHNIQUE: One view of the chest was acquired. COMPARISON: Chest x-ray, 01/10/2023. FINDINGS: Surgical changes and devices: There is a cardiac pacemaker in expected position. Lungs and pleura: No pleural effusions or pneumothorax. Lungs are clear. Mediastinum: Mediastinal contours appear normal. Heart size is normal. Bones and chest wall: No suspicious bony lesions. Overlying soft tissues appear unremarkable. IMPRESSION: No acute cardiopulmonary process. Reviewed by: Monty Young MD on 10/09/2023 7:54 PM PDT Approved by: Monty Young MD on 10/09/2023 7:54 PM PDT Station ID: [id number]
[2023-10-09 19:57] LABS: INR 1.3 (0.8-1.2)
[2023-10-09] MEDS: ONDANSETRON 4 MG/2 ML VIAL IVP STA (19:59)
[2023-10-09 20:04] LABS: ALBUMIN 4.5 g/dL (3.2-5.5); BILIRUBIN,TOTAL 0.9 mg/dL (0.2-1.0); CREATININE 1.4 mg/dL (0.6-1.3); POTASSIUM 3.8 mmol/L (3.5-4.5); TOTAL PROTEIN 6.8 g/dL (6.4-8.9)
[2023-10-09 20:19] LABS: BILIRUBIN,URINE NEGATIVE (NEGATIVE); GLUCOSE, URINE (UA) >=1000 mg/dL (NEGATIVE); KETONES,URINE (UA) NEGATIVE (NEGATIVE); LEUKOCYTE ESTERASE, URINE NEGATIVE (NEGATIVE); NITRITE,URINE NEGATIVE (NEGATIVE); OCCULT BLOOD,URINE TRACE-INTA (NEGATIVE); PH,URINE 6.5 PH (5.0-7.5); PROTEIN,URINE NEGATIVE (NEGATIVE); UROBILINOGEN,URINE 0.2 (NORMAL) E.U./dL (NORMAL)
[2023-10-09 20:20] LABS: CLARITY,URINE CLEAR (CLEAR)
[2023-10-09 20:20] LABS: BAND NEUTROPHILS % (MANUAL) 9 %; LYMPHOCYTES # (MANUAL) 0.2 10^3/uL (1.5-3.5); LYMPHOCYTES % (MANUAL) 6 %; NEUTROPHILS # (MANUAL) 2.5 10^3/uL (1.5-6.6)
[2023-10-09 20:21] LABS: DIFFERENTIAL COMMENT MANUAL DIFFERENTIAL; PLATELET ESTIMATE, MANUAL NORMAL (130-450,000) (NORMAL); PLATELET MORPHOLOGY NORMAL APPEARANCE (NORMAL); RBC MORPHOLOGY (MULTIPLE) NORMAL APPEARANCE (NORMAL); WBC MORPHOLOGY (MULTIPLE) 1+ HYPERSEG NEUT (NORMAL)
[2023-10-09 20:30] LABS: B. PARAPERTUSSIS- RESP PCR PAN NOT DETECTED; B. PERTUSSIS- RESP PCR PANEL NOT DETECTED; C. PNEUMONIAE- RESP PCR PANEL NOT DETECTED; CORONAVIRUS 229E-RESP PCR NOT DETECTED; CORONAVIRUS HKU1-RESP PCR NOT DETECTED; CORONAVIRUS NL63-RESP PCR NOT DETECTED; CORONAVIRUS OC43-RESP PCR NOT DETECTED; HUMAN METAPNEUMOVIRUS NOT DETECTED; INFLUENZA A- RESP PCR PANEL NOT DETECTED; INFLUENZA B - RESP PCR PANEL NOT DETECTED; M. PNEUMONIAE- RESP PCR PANEL NOT DETECTED; PARAINFLUENZA VIRUS 1 NOT DETECTED; PARAINFLUENZA VIRUS 2 NOT DETECTED; PARAINFLUENZA VIRUS 3 NOT DETECTED; PARAINFLUENZA VIRUS 4 NOT DETECTED; RHINOVIRUS/ENTEROVIRUS NOT DETECTED; RSV- RESP PCR PANEL NOT DETECTED; SARS-CoV-2 -RESP PCR PANEL NOT DETECTED
== END 2023-10-09 21:21 | disposition home or self-care (01) ==
LOC: EDUNIT# → ED 19:07
DX: B34.9 Viral infection, unspecified (principal); R05.9 Cough, unspecified; I10 Essential (primary) hypertension; E11.9 Type 2 diabetes mellitus without complications; Z79.899 Other long term (current) drug therapy; Z79.4 Long term (current) use of insulin; Z79.01 Long term (current) use of anticoagulants
CPT/HCPCS: 36415; 80053; 81001; 81003; 83605; 83690; 85025; 85610; 85730; 87040; 87086; 87154; 87633; 96374; 99283

== ENCOUNTER 2023-10-10 14:38 | Inpatient (IN) | payer MEDICARE, OTHER ==
[2023-10-10] MEDS ORDERED: iohexoL-300 100 ML VIAL ONE (15:17)
[2023-10-10] MEDS: SODIUM CHLORIDE 0.9% 1,000 ML IV STA (15:18)
[2023-10-10] MEDS: cefTRIAXone 1 GM in SODIUM CHLORIDE 0.9% MINIBAG 100 ML IV STA ×2 (15:26→19:32)
[2023-10-10 15:29] LABS: BASOPHILS % (AUTO) 0.3 %; EOSINOPHILS % (AUTO) 0.2 %; HCT - HEMATOCRIT 39.6 % (42.0-52.0); LYMPHOCYTES # (AUTO) 0.8 10^3/uL (1.5-3.5); LYMPHOCYTES % (AUTO) 6.7 %; MEAN CORPUSCULAR HEMOGLOBIN 29.2 pg (27.0-31.0); MEAN CORPUSCULAR HGB CONC 32.8 g/dL (32.0-36.0); MEAN PLATELET VOLUME 11.6 fL (7.4-11.4); MONOCYTES # (AUTO) 0.9 10^3/uL (0.0-1.0); MONOCYTES % (AUTO) 7.2 %; NEUTROPHILS # (AUTO) 10.2 10^3/uL (1.5-6.6); NEUTROPHILS % (AUTO) 85.1 %; PLT - PLATELET COUNT 125 10^3/uL (130-450); RED BLOOD COUNT 4.45 10^6/uL (4.70-6.10); RED CELL DISTRIBUTION WIDTH 14.3 % (12.0-15.0)
[2023-10-10 15:39] LABS: ALBUMIN 3.9 g/dL (3.2-5.5); ALBUMIN/GLOBULIN RATIO 2.1 (1.0-2.2); ALKALINE PHOSPHATASE 55 IU/L (42-121); ALT ALANINE AMINOTRANSFERASE 70 IU/L (10-60); AST ASPARTATE AMINOTRANSFERASE 68 IU/L (10-42); BILIRUBIN,TOTAL 1.1 mg/dL (0.2-1.0); BUN - BLOOD UREA NITROGEN 30 mg/dL (6-20); CALCIUM 9.5 mg/dL (8.5-10.3); CARBON DIOXIDE - CO2 27 mmol/L (21-32); CHLORIDE 100 mmol/L (101-111); CREATININE 1.8 mg/dL (0.6-1.3); GFR - MDRD 36 (>89); GLUCOSE 167 mg/dL (74-104); POTASSIUM 3.6 mmol/L (3.5-4.5); SODIUM 134 mmol/L (135-145); TOTAL PROTEIN 5.8 g/dL (6.4-8.9)
[2023-10-10 15:40] LABS: LIPASE < 10 U/L (11-82)
--- NOTE | 2023-10-10 16:04 | ED Physician Documentation ---
History of Present Illness - Stated complaint Stated Complaint: FOLLOW UP - Chief complaint Chief Complaint: General - History obtained from History obtained from: Patient - Additonal information Additional information: Patient is an 83-year-old male presenting from home after being called back in for positive blood cultures. Patient was seen yesterday after stating he felt like he has open "sepsis". Patient states he has had 2 prior episodes of sepsis and started feeling the same yesterday. Patient states he felt like he was shaking, felt weak and having some coughing. Reports 1 episode of sepsis was related to a gallbladder infection and has had a cholecystectomy. He states that the other episode they were on sure of the source of the infection but it was from E. coli. Denies dysuria, hematuria, flank pain, abdominal pain, diarrhea. He did have 1 episode of emesis yesterday by EMS. Both sets of blood cultures were positive for gram-negative Bacteria which is positive for E. coli. Patient reports still feeling weak and unwell today. Review of Systems Constitutional: reports: Chills Respiratory: reports: Cough GI: denies: Abdominal Pain : denies: Dysuria PD PAST MEDICAL HISTORY - Past Medical History Cardiovascular: Hypertension Respiratory: None Endocrine/Autoimmune: Type 2 diabetes GI: Other : None Psych: None Musculoskeletal: None Derm: Other - Past Surgical History Past Surgical History: Yes General: Cholecystectomy Cardiovascular: Pacemaker Derm: Skin cancer surgery - Present Medications Home Medications: Ambulatory Orders Medication Instructions Recorded Confirmed Insulin Glargine [Lantus Solostar] 26 units SUBQ HS 02/23/14 10/10/23 Insulin Aspart [Novolog Flexpen] 0 units SUBQ TIDACHS 02/24/14 10/10/23 Apixaban [Eliquis] 5 mg PO BID 01/10/23 10/10/23 Metoprolol Tartrate [Lopressor] 25 mg PO BID 01/10/23 10/10/23 Rosuvastatin Calcium 20 mg PO HS 01/10/23 10/10/23 Tamsulosin [Flomax] 1 cap PO HS 01/10/23 10/10/23 - Allergies Allergies/Adverse Reactions: Allergies Allergy/AdvReac Type Severity Reaction Status Date / Time No Known Drug Allergies Allergy Verified 10/10/23 14:46 - Social History Does the pt smoke?: No Smoking Status: Never smoker Does the pt drink ETOH?: No Does the pt have substance abuse?: No - Immunizations Immunizations are current?: Yes - POLST Patient has POLST: Yes PD ED PE NORMAL - General General: Alert and oriented X 3, No acute distress, Well developed/nourished - HEENT HEENT: Atraumatic, Moist mucous membranes, Pharynx benign - Neck Neck: Supple, no meningeal sign - Cardiac Cardiac: RRR, Strong equal pulses - Respiratory Respiratory: No respiratory distress, Clear bilaterally - Abdomen Abdomen: Normal bowel sounds, Soft, Non tender, Non distended - Derm Derm: Warm and dry - Neuro Neuro: Normal speech Results - Vitals Vitals: Vital Signs - 24 hr 10/10/23 10/10/23 10/10/23 14:43 14:50 15:10 Temperature 36.2 C L Heart Rate 69 60 Respiratory 16 17 16 Rate Blood Pressure 115/54 L 125/51 L O2 Saturation 95 99 10/10/23 10/10/23 16:29 16:53 Temperature Heart Rate 60 Respiratory 16 16 Rate Blood Pressure 114/54 L O2 Saturation 99 Oxygen O2 Source Room air - Labs Labs: Laboratory Tests 10/10/23 10/10/23 10/10/23 15:05 15:05 15:12 WBC 12.0 H RBC 4.45 L Hgb 13.0 L Hct 39.6 L MCV 89.0 MCH 29.2 MCHC 32.8 RDW 14.3 Plt Count 125 L MPV 11.6 H Neut # (Auto) 10.2 H Lymph # (Auto) 0.8 L [place] # (Auto) 0.9 Eos # (Auto) 0.0 Baso # (Auto) 0.0 Absolute Nucleated RBC 0.00 Nucleated RBC % 0.0 Sodium 134 L Potassium 3.6 Chloride 100 L Carbon Dioxide 27 Anion Gap 7.0 BUN 30 H Creatinine 1.8 H Estimated GFR (MDRD) 36 L Glucose 167 H Lactic Acid 1.1 Calcium 9.5 Total Bilirubin 1.1 H AST 68 H ALT 70 H Alkaline Phosphatase 55 Total Protein 5.8 L Albumin 3.9 Globulin 1.9 L Albumin/Globulin Ratio 2.1 Lipase < 10 L Urine Color Urine Clarity Urine pH Ur Specific [place] Urine Protein Urine Glucose (UA) Urine Ketones Urine Occult Blood Urine Nitrite Urine Bilirubin Urine Urobilinogen Ur Leukocyte Esterase Ur Microscopic Review Urine Culture Comments 10/10/23 16:20 WBC RBC Hgb Hct MCV MCH MCHC RDW Plt Count MPV Neut # (Auto) Lymph # (Auto) [place] # (Auto) Eos # (Auto) Baso # (Auto) Absolute Nucleated RBC Nucleated RBC % Sodium Potassium Chloride Carbon Dioxide Anion Gap BUN Creatinine Estimated GFR (MDRD) Glucose Lactic Acid Calcium Total Bilirubin AST ALT Alkaline Phosphatase Total Protein Albumin Globulin Albumin/Globulin Ratio Lipase Urine Color YELLOW Urine Clarity CLEAR Urine pH 6.0 Ur Specific [place] <=1.005 Urine Protein NEGATIVE Urine Glucose (UA) NEGATIVE Urine Ketones NEGATIVE Urine Occult Blood NEGATIVE Urine Nitrite NEGATIVE Urine Bilirubin NEGATIVE Urine Urobilinogen 0.2 (NORMAL) Ur Leukocyte Esterase NEGATIVE Ur Microscopic Review NOT INDICATED Urine Culture Comments NOT INDICATED PD Medical Decision Making - ED course Complexity details: reviewed results, d/w patient Reviewed Lab Results: Pt is an 83-year-old male presenting for positive blood cultures. Patient was seen yesterday after what sounds like rigors and has a history of E. coli bacteremia in the past. Today he reports still feeling fatigued and quite weak. Vital signs are stable. Labs reviewed. WBC has elevated from 2.7-12. Mild elevation in creatinine and LFTs. No abdominal tenderness. CT scan of the chest, abdomen and pelvis were obtained and without any significant findings.Urine analysis is negative for infection. Patient was already started on Rocephin. Repeat blood cultures obtained. Discussed with admitting hospitalist Dr. Beasley who will admit for further management. Departure - Departure Disposition: 66 [facility] DC/Xfer Clinical Impression: E coli bacteremia, Leukocytosis, Elevated liver enzymes Condition: Good Forms: PCP List
--- NOTE | 2023-10-10 16:08 | CT Report ---
PROCEDURE: Abdomen/Pelvis W INDICATIONS: gram neg bacteremia; unclear source CONTRAST: Omni 300 100ml TECHNIQUE: After the administration of intravenous contrast, a CT scan of the abdomen and pelvis was performed. Images were recorded and evaluated at appropriate window settings. Reformats: coronal and sagittal. F or radiation dose reduction, the following was used: automated exposure control, adjustment of mA and /or kV according to patient size. COMPARISON: 06/26/2013 FINDINGS: Image quality: Diagnostic. Lower chest: Pacemaker. Top normal heart size. At least moderate coronary artery calcifications.. Liver: No solid mass. Mild diffuse hepatic steatosis. Gallbladder and biliary tree: Surgically absent. No biliary dilation, accounting for post-cholecystec eleuterio state. Spleen: There is a 2.2 cm low-density lesion in the spleen, which typically is a benign lesion. Pancreas: No pancreatic ductal dilation. Adrenals: No adrenal nodule. Kidneys and ureters: No hydronephrosis. No renal cystic lesion which requires follow up. No solid mas s. Stomach, bowel and peritoneum: No bowel distension. No pathologic free fluid. Diverticulosis without evidence of diverticulitis. Lymph nodes: No central or retroperitoneal adenopathy. Vessels: No infrarenal aortic aneurysm. PELVIS Reproductive organs: Moderate prostatomegaly.. Bladder: No abnormal wall thickening, accounting for underdistention. Pelvic lymph nodes: No pelvic adenopathy by size criteria. Bones: No aggressive osseous abnormality. Other: Bilateral fat-containing inguinal hernias. IMPRESSION: 1. No acute abdominal process noted. 2.. Diverticulosis. 3. Prostatomegaly. 4. Mild diffuse hepatic steatosis. 5. Bilateral fat-containing inguinal hernias. Reviewed by: Itz Monroe MD on 10/10/2023 4:07 PM PDT Approved by: Itz Monroe MD on 10/10/2023 4:07 PM PDT Station ID: [id number]
--- NOTE | 2023-10-10 16:12 | CT Report ---
PROCEDURE: Chest W INDICATIONS: gram neg bacteremia; unclear source CONTRAST: Omni 300 100ml TECHNIQUE: After the administration of intravenous contrast, a CT scan of the chest was performed. Images were recorded and evaluated at appropriate window settings. Reformats: axial MIP of the chest, coronal and sagittal. For radiation dose reduction, the following was used: automated exposure control, adjustme nt of mA and/or kV according to patient size. COMPARISON: CT abdomen and pelvis from the same date. FINDINGS: Image quality: Diagnostic. Chest wall and lower neck: No thyroid nodule which requires sonographic follow up. No axillary or sup raclavicular adenopathy by size. Lungs and pleura: No consolidation. No pleural effusions. No pneumothorax. No suspicious pulmonary n odules which require follow up. Mediastinum: Mild cardiomegaly. Pacemaker. Severe coronary artery calcifications. No pericardial effu kaylie. No large vessel abnormality. No mediastinal adenopathy by size criteria. Bones: No aggressive osseous abnormality. Upper Abdomen: Mild diffuse hepatic steatosis. Please refer to a separate report for findings in the abdomen and pelvis. IMPRESSION: 1. Mild cardiomegaly, pacemaker, severe coronary artery calcifications. 2. No acute pulmonary process noted. Reviewed by: Itz Monroe MD on 10/10/2023 4:10 PM PDT Approved by: Itz Monroe MD on 10/10/2023 4:10 PM PDT Station ID: [id number]
[2023-10-10 16:43] LABS: BILIRUBIN,URINE NEGATIVE (NEGATIVE); GLUCOSE, URINE (UA) NEGATIVE (NEGATIVE); KETONES,URINE (UA) NEGATIVE (NEGATIVE); LEUKOCYTE ESTERASE, URINE NEGATIVE (NEGATIVE); NITRITE,URINE NEGATIVE (NEGATIVE); OCCULT BLOOD,URINE NEGATIVE (NEGATIVE); PROTEIN,URINE NEGATIVE (NEGATIVE); UROBILINOGEN,URINE 0.2 (NORMAL) E.U./dL (NORMAL)
[2023-10-10 16:44] LABS: CLARITY,URINE CLEAR (CLEAR)
[2023-10-10] MEDS: iohexoL-300 100 ML VIAL IVP ONE (16:50)
[2023-10-10] MEDS ORDERED: SODIUM CHLORIDE FLUSH 0.9% 10 ML SYRINGE IVP PRN (18:44)
[2023-10-10] MEDS ORDERED: cefTRIAXone 1 GM VIAL ONE (19:31)
[2023-10-10] MEDS: SODIUM CHLORIDE 0.9% 1,000 ML IV SCH (20:25)
--- NOTE | 2023-10-10 22:47 | HISTORY & PHYSICAL EXAMINATION ---
Chief Complaint - Chief Complaint Chief Complaint: Weakness History of Present Illness - Admitted From Admitted From:: Emergency room - History Obtained From Records Reviewed: Yes History obtained from: Patient and emergency room physician Dr. Juan M Street - History of Present Illness HPI Comment/Other: Ronal Morris is an 83-year-old who was called back to the emergency room for positive blood cultures. He was seen on October 09, 2023 in the emergency room with complaints of weakness. He reports some shaking chills and cough. Patient reports she has had 2 episodes of positive blood cultures in the past. He underwent a cholecystectomy in 2020. He reports he has not had an episode status post his cholecystectomy up to this point. Patient has a history of cardiac disease and has a pacemaker in place. He also has a past medical history significant for type 2 diabetes mellitus. History - Past Medical History Cardiovascular: reports: Hypertension Respiratory: reports: None Neuro: reports: None Endocrine/Autoimmune: reports: Type 2 diabetes GI: reports: Other : reports: None Psych: reports: None Musculoskeletal: reports: None Derm: reports: Other MRSA Hx?: No - Past Surgical History General: reports: Cholecystectomy Cardiovascular: reports: Pacemaker Derm: reports: Skin cancer surgery - POLST Patient has POLST: Yes Meds/Allgy - Home Medications Home Medications: Ambulatory Orders Medication Instructions Recorded Confirmed Insulin Glargine [Lantus Solostar] 22 units SUBQ HS 02/23/14 10/11/23 Insulin Aspart [Novolog Flexpen] 12 - 15 units SUBQ TIDWM 02/24/14 10/11/23 Apixaban [Eliquis] 5 mg PO BID 01/10/23 10/10/23 Metoprolol Tartrate [Lopressor] 25 mg PO BID 01/10/23 10/10/23 Rosuvastatin Calcium 20 mg PO HS 01/10/23 10/10/23 Tamsulosin [Flomax] 1 cap PO HS 01/10/23 10/10/23 amLODIPine [Norvasc] 5 mg PO DAILY 10/11/23 10/11/23 - Allergies Allergies/Adverse Reactions: Allergies Allergy/AdvReac Type Severity Reaction Status Date / Time No Known Drug Allergies Allergy Verified 10/10/23 14:46 Review of Systems - Constitutional Constitutional: reports: Fatigue, Chills, Weakness Exam - Vital Signs Vital Signs: Vital Signs x48h Temp Pulse Pulse Resp BP BP Pulse Ox 10/10/23 20:18 36.7 C 60 18 128/57 L 94 10/10/23 19:00 60 18 119/51 L 94 10/10/23 17:54 36.4 C L 16 10/10/23 16:53 60 16 114/54 L 99 10/10/23 16:29 16 10/10/23 15:10 60 16 125/51 L 99 10/10/23 14:50 17 - Physical Exam General Appearance: positive: No acute distress, Alert Eyes Bilateral: positive: PERRL Neck: positive: No JVD, Trachea midline Respiratory: positive: Other (Good air exchange in all lung dye no wheezing no crackles.) Cardiovascular: positive: Other (Positive S1-S2 no extra heart sounds.) Abdomen: positive: Other (Soft nontender nondistended positive bowel sounds) Skin: positive: No rash Extremities: positive: No pedal edema Neurologic/Psychiatric: positive: Oriented x3, Motor nml Conclusion/Plan - Problem List (1) E coli bacteremia Conclusion/Plan: Etiology of bacteremia is not clear. He underwent a CT scan of the chest today that revealed mild cardiomegaly with a pacemaker in place and severe coronary artery calcifications. No acute pulmonary process was noted. He also underwent a CT scan of the abdomen and pelvis which revealed no acute abdominal process, diverticulosis, and enlarged prostate and diffuse hepatic steatosis. Plan is to initiate treatment with ceftriaxone. Plan to discuss case with infectious disease if possible. (2) Atrial fibrillation Conclusion/Plan: Continue apixaban Restart metoprolol when appropriate. (3) Diabetes mellitus Conclusion/Plan: Continue outpatient dose of glargine 22 units each evening and sliding scale insulin - Lab Results Fish Bones: 10/10/23 15:05 10/12/23 05:21
[2023-10-11] MEDS: SODIUM CHLORIDE FLUSH 0.9% 10 ML SYRINGE IVP SCH (05:55)
[2023-10-11] MEDS: APIXABAN 5 MG TABLET PO SCH (09:14)
[2023-10-11] MEDS: INSULIN LISPRO 300 UNIT/3 ML PEN SUBQ SCH ×2 (11:45)
[2023-10-11] MEDS: PIPERACILLIN/TAZOBACTAM 3.375 GM in SODIUM CHLORIDE 0.9% MINIBAG 100 ML IV SCH (14:56)
[2023-10-11] MEDS ORDERED: cefTRIAXone 2 GM in SODIUM CHLORIDE 0.9% MINIBAG 100 ML IV SCH (20:00)
[2023-10-11] MEDS: TAMSULOSIN 0.4 MG CAPSULE PO SCH (21:05)
[2023-10-11] MEDS: INSULIN GLARGINE-YFGN 300 UNIT/3 ML PEN SUBQ SCH (21:06)
--- NOTE | 2023-10-11 23:11 | PROVIDER PROGRESS NOTE ---
Assessment/Plan - Problem List (1) E coli bacteremia Assessment/Plan: Etiology of bacteremia is not clear. He underwent a CT scan of the chest today that revealed mild cardiomegaly with a pacemaker in place and severe coronary artery calcifications. No acute pulmonary process was noted. He also underwent a CT scan of the abdomen and pelvis which revealed no acute abdominal process, diverticulosis, and enlarged prostate and diffuse hepatic steatosis. One of the blood culture bottles is growing Pseudomonas. Antibiotics changed to Zosyn and dose for renal clearance. (2) Atrial fibrillation Conclusion/Plan: Continue apixaban Restart metoprolol when appropriate. (3) Diabetes mellitus Conclusion/Plan: Continue outpatient dose of glargine 22 units each evening and sliding scale insulin - Current Meds Current Meds: Current Medications Generic Name Dose Route Start Last Admin Trade Name Freq PRN Reason Stop Dose Admin Apixaban 5 mg 10/11/23 09:00 10/11/23 21:05 Apixaban 5 Mg Tablet PO 5 mg BID MARY Administration Sodium Chloride 1,000 mls @ 100 mls/hr 10/10/23 20:00 10/11/23 15:58 Normal Saline 0.9% IV 100 mls/hr .Q10H MARY Administration Piperacillin Sod/Tazobactam 100 mls @ 200 mls/hr 10/11/23 15:00 10/11/23 21:05 Sod 3.375 gm/ Sodium Chloride IV 200 mls/hr Q6H MARY Administration Insulin Glargine-yfgn 26 unit 10/11/23 21:00 10/11/23 21:06 Insulin Glargine-Yfgn 300 Unit/3 Ml Pen SUBQ 26 unit HS MARY Administration Insulin Human Lispro 1 - 9 unit 10/11/23 12:00 10/11/23 21:06 Insulin Lispro 300 Unit/3 Ml Pen SUBQ 3 unit 0800,1200,1700,2100 MARY Administration Protocol Insulin Human Lispro 5 unit 10/11/23 12:00 10/11/23 17:26 Insulin Lispro 300 Unit/3 Ml Pen SUBQ 5 unit TIDWM MARY Administration Protocol Sodium Chloride 10 ml 10/11/23 01:00 10/11/23 16:02 Sodium Chloride Flush 0.9% 10 Ml Syringe IVP 10 ml 0100,0900,1700 MARY Administration Tamsulosin HCl 0.4 mg 10/11/23 21:00 10/11/23 21:05 Tamsulosin 0.4 Mg Capsule PO 0.4 mg HS MARY Administration - Lab Result Fish Bone Diagrams: 10/10/23 15:05 10/12/23 05:21 - Additional Planning My Orders: My Active Orders 10/11/23 01:00 Sodium Chloride Flush 0.9% [Normal Saline Flush 0.9%] 10 ml IVP 0100,0900,1700 10/11/23 Breakfast DIET [Regular Diet] [DIET] 10/11/23 08:24 Blood Glucose Checks - Eating [RC] 0800,1200,1700,2100 Initiate Hypoglycemia Protocol [RC] .protocol 10/11/23 09:00 Apixaban [Eliquis] 5 mg PO BID 10/11/23 12:00 Insulin Lispro [Humalog Kwikpen U-100] 1 - 9 unit SUBQ 0800,1200,1700,2100 Insulin Lispro [Humalog Kwikpen U-100] 5 unit SUBQ TIDWM 10/11/23 15:00 Piperacillin/Tazobactam [Zosyn] 3.375 gm Sodium Chloride 0.9% Minibag [Normal Saline 0.9% Minibag] 100 ml IV Q6H 10/11/23 21:00 Insulin Glargine-Yfgn [Semglee] 26 unit SUBQ HS Tamsulosin [Flomax] 0.4 mg PO HS 10/12/23 05:00 BMP - BASIC METABOLIC PANEL [CHEM] Routine MAGNESIUM [CHEM] Routine PHOSPHORUS [CHEM] Routine Subjective - Subjective Patient Reports: Other (Alert. Denies fever, chest pain, shortness of breath and abdominal pain. No other complaints at this time.) Objective Vital Signs: Vital Signs - 24 hr 10/11/23 10/11/23 10/11/23 00:19 08:00 16:00 Temperature 36.7 C 36.7 C 36.5 C Heart Rate [ 63 63 61 Brachial] Respiratory 18 18 18 Rate Blood Pressure 125/57 L 135/58 H 140/70 H [Right Brachial artery] O2 Saturation 96 96 94 Oxygen O2 Source Room air I&O (Last 24 Hrs): Intake and Output Totals x24h 10/09/23 10/10/23 10/11/23 23:59 23:59 23:59 Intake Total 1200 3150 Output Total 0 Balance 1200 3150 General: Alert, Oriented x3, No acute distress Neck: No JVD, No thyromegaly Neuro: Alert, Non Focal Cardiovascular: Other (Positive S1-S2 no extra heart sounds) Respiratory: Other (Good air exchange in all lung dye no wheezing no crackles) Abdomen: Other (Soft nontender nondistended positive bowel sounds) Extremities: No cyanosis, No edema Skin: No rashes - Results Results: Laboratory Results WBC 12.0 x10^3/uL (4.8-10.8) H 10/10/23 15:05 RBC 4.45 10^6/uL (4.70-6.10) L 10/10/23 15:05 Hgb 13.0 g/dL (14.0-18.0) L 10/10/23 15:05 Hct 39.6 % (42.0-52.0) L 10/10/23 15:05 MCV 89.0 fL (80.0-94.0) 10/10/23 15:05 MCH 29.2 pg (27.0-31.0) 10/10/23 15:05 MCHC 32.8 g/dL (32.0-36.0) 10/10/23 15:05 RDW 14.3 % (12.0-15.0) 10/10/23 15:05 Plt Count 125 10^3/uL (130-450) L 10/10/23 15:05 MPV 11.6 fL (7.4-11.4) H 10/10/23 15:05 Neut # (Auto) 10.2 10^3/uL (1.5-6.6) H 10/10/23 15:05 Lymph # (Auto) 0.8 10^3/uL (1.5-3.5) L 10/10/23 15:05 [place] # (Auto) 0.9 10^3/uL (0.0-1.0) 10/10/23 15:05 Eos # (Auto) 0.0 10^3/uL (0.0-0.7) 10/10/23 15:05 Baso # (Auto) 0.0 10^3/uL (0.0-0.1) 10/10/23 15:05 Absolute Nucleated RBC 0.00 x10^3/uL 10/10/23 15:05 Nucleated RBC % 0.0 /100WBC 10/10/23 15:05 Sodium 134 mmol/L (135-145) L 10/10/23 15:05 Potassium 3.6 mmol/L (3.5-4.5) 10/10/23 15:05 Chloride 100 mmol/L (101-111) L 10/10/23 15:05 Carbon Dioxide 27 mmol/L (21-32) 10/10/23 15:05 Anion Gap 7.0 (6-13) 10/10/23 15:05 BUN 30 mg/dL (6-20) H 10/10/23 15:05 Creatinine 1.8 mg/dL (0.6-1.3) H 10/10/23 15:05 Estimated GFR (MDRD) 36 (>89) L 10/10/23 15:05 Glucose 167 mg/dL (74-104) H 10/10/23 15:05 POC Whole Bld Glucose 203 mg/dL (70 - 100) H 10/11/23 20:54 Lactic Acid 1.1 mmol/L (0.5-2.2) 10/10/23 15:12 Calcium 9.5 mg/dL (8.5-10.3) 10/10/23 15:05 Total Bilirubin 1.1 mg/dL (0.2-1.0) H 10/10/23 15:05 AST 68 IU/L (10-42) H 10/10/23 15:05 ALT 70 IU/L (10-60) H 10/10/23 15:05 Alkaline Phosphatase 55 IU/L (42-121) 10/10/23 15:05 Total Protein 5.8 g/dL (6.4-8.9) L 10/10/23 15:05 Albumin 3.9 g/dL (3.2-5.5) 10/10/23 15:05 Globulin 1.9 g/dL (2.1-4.2) L 10/10/23 15:05 Albumin/Globulin Ratio 2.1 (1.0-2.2) 10/10/23 15:05 Lipase < 10 U/L (11-82) L 10/10/23 15:05 Urine Color YELLOW 10/10/23 16:20 Urine Clarity CLEAR (CLEAR) 10/10/23 16:20 Urine pH 6.0 PH (5.0-7.5) 10/10/23 16:20 Ur Specific [place] <=1.005 (1.002-1.030) 10/10/23 16:20 Urine Protein NEGATIVE mg/dL (NEGATIVE) 10/10/23 16:20 Urine Glucose (UA) NEGATIVE mg/dL (NEGATIVE) 10/10/23 16:20 Urine Ketones NEGATIVE mg/dL (NEGATIVE) 10/10/23 16:20 Urine Occult Blood NEGATIVE (NEGATIVE) 10/10/23 16:20 Urine Nitrite NEGATIVE (NEGATIVE) 10/10/23 16:20 Urine Bilirubin NEGATIVE (NEGATIVE) 10/10/23 16:20 Urine Urobilinogen 0.2 (NORMAL) E.U./dL (NORMAL) 10/10/23 16:20 Ur Leukocyte Esterase NEGATIVE (NEGATIVE) 10/10/23 16:20 Ur Microscopic Review NOT INDICATED 10/10/23 16:20 Urine Culture Comments NOT INDICATED 10/10/23 16:20
[2023-10-12 06:16] LABS: CALCIUM 8.9 mg/dL (8.5-10.3); CREATININE 1.2 mg/dL (0.6-1.3); MAGNESIUM 1.7 mg/dL (1.7-2.3); PHOSPHORUS 2.8 mg/dL (2.5-5.0)
--- NOTE | 2023-10-12 10:34 | ANESTHESIA PROCEDURE NOTE ---
Anesth Central Line Template - Central Line Central Line Preparation: Consent Obtained Central line location: Right Basilic Central line type: PICC Double Lumen Central line catheter tip site resides: Superior vena cava (SVC) Central line aftercare: Secured, Placement confirmed, No pneumothorax, No complications, Bundle checklist complete, Pt tolerated well Other Info/Details: Right arm bascilic vein accessed: usual sterile technique and US guidance, catheter trimmed to 41cm, zero exposed, 5 kiswahili, dual lumen. position confirmed by cxr, ok to use.
--- NOTE | 2023-10-12 10:39 | XRAY Report ---
PROCEDURE: Chest for Line Placement INDICATIONS: New PICC line TECHNIQUE: One view of the chest was acquired. COMPARISON: 10/09/2023. FINDINGS: Surgical changes and devices: Pacemaker. Interval placement of a right arm PICC line, tip which proj ects to the SVC right atrial junction. Lungs and pleura: No pleural effusions or pneumothorax. Lungs are clear. Mediastinum: Mediastinal contours appear normal. Heart size is normal. Bones and chest wall: No suspicious bony lesions. Overlying soft tissues appear unremarkable. IMPRESSION: Satisfactory PICC line position. Reviewed by: Itz Monroe MD on 10/12/2023 10:38 AM PDT Approved by: Itz Monroe MD on 10/12/2023 10:38 AM PDT Station ID: [id number]
--- NOTE | 2023-10-12 22:24 | PROVIDER PROGRESS NOTE ---
Assessment/Plan - Problem List (2) Pseudomonal bacteremia Assessment/Plan: Blood cultures drawn on October 08 grew out E. coli out of each bottle and 1 bottle grew out Pseudomonas. Plan is 14 days of IV antibiotics. A PICC line was placed today. Arrangements are being made for patient to receive antibiotics as an outpatient. Patient to receive cefepime 2 g twice daily as an outpatient. Arrangements will be made for patient to be seen by infectious disease once he is discharged. (2) Atrial fibrillation Conclusion/Plan: Continue apixaban Restart metoprolol when appropriate. (3) Diabetes mellitus Conclusion/Plan: Continue outpatient dose of glargine 22 units each evening and sliding scale insulin - Current Meds Current Meds: Current Medications Generic Name Dose Route Start Last Admin Trade Name Freq PRN Reason Stop Dose Admin Apixaban 5 mg 10/11/23 09:00 10/12/23 21:46 Apixaban 5 Mg Tablet PO 5 mg BID MARY Administration Sodium Chloride 1,000 mls @ 100 mls/hr 10/10/23 20:00 10/12/23 15:01 Normal Saline 0.9% IV 100 mls/hr .Q10H MARY Administration Piperacillin Sod/Tazobactam 100 mls @ 200 mls/hr 10/11/23 15:00 10/12/23 21:46 Sod 3.375 gm/ Sodium Chloride IV 200 mls/hr Q6H MARY Administration Insulin Glargine-yfgn 26 unit 10/11/23 21:00 10/11/23 21:06 Insulin Glargine-Yfgn 300 Unit/3 Ml Pen SUBQ 26 unit HS MARY Administration Insulin Human Lispro 1 - 9 unit 10/11/23 12:00 10/12/23 21:47 Insulin Lispro 300 Unit/3 Ml Pen SUBQ 3 unit 0800,1200,1700,2100 MARY Administration Protocol Insulin Human Lispro 5 unit 10/11/23 12:00 10/12/23 18:19 Insulin Lispro 300 Unit/3 Ml Pen SUBQ 5 unit TIDWM MARY Administration Protocol Sodium Chloride 10 ml 10/11/23 01:00 10/12/23 16:02 Sodium Chloride Flush 0.9% 10 Ml Syringe IVP Not Given 0100,0900,1700 [facility] Tamsulosin HCl 0.4 mg 10/11/23 21:00 10/12/23 21:46 Tamsulosin 0.4 Mg Capsule PO 0.4 mg HS MARY Administration - Lab Result Fish Bone Diagrams: 10/10/23 15:05 10/12/23 05:21 - Additional Planning My Orders: My Active Orders 10/12/23 07:49 PICC Line Care [RC] Q4H PICC Line Insert [RC] .ONCE Subjective - Subjective Patient Reports: Other (Alert. Denies chest pain, shortness of breath and abdominal pain. No complaints at this time. He feels he is close to his baseline.) Objective Vital Signs: Vital Signs - 24 hr 10/12/23 10/12/23 10/12/23 00:34 07:37 16:35 Temperature 36.9 C 36.5 C 36.6 C Heart Rate [ 66 65 60 Brachial] Respiratory 18 18 18 Rate Blood Pressure 147/63 H 137/68 H 149/73 H [Right Brachial artery] O2 Saturation 96 93 96 Oxygen O2 Source Room air I&O (Last 24 Hrs): Intake and Output Totals x24h 10/10/23 10/11/23 10/12/23 23:59 23:59 23:59 Intake Total 1200 3250 3734 Output Total 0 Balance 1200 3250 3734 General: Alert, Oriented x3, No acute distress Neck: Supple, No JVD, No thyromegaly Neuro: Alert, Non Focal Cardiovascular: Other (Positive S1-S2 no extra heart sounds.) Respiratory: Other (Good air exchange in all lung dye.) Abdomen: Other (Positive bowel sounds soft nontender nondistended.) Extremities: Other (No cyanosis. No edema) Skin: No rashes - Results Results: Laboratory Results WBC 12.0 x10^3/uL (4.8-10.8) H 10/10/23 15:05 RBC 4.45 10^6/uL (4.70-6.10) L 10/10/23 15:05 Hgb 13.0 g/dL (14.0-18.0) L 10/10/23 15:05 Hct 39.6 % (42.0-52.0) L 10/10/23 15:05 MCV 89.0 fL (80.0-94.0) 10/10/23 15:05 MCH 29.2 pg (27.0-31.0) 10/10/23 15:05 MCHC 32.8 g/dL (32.0-36.0) 10/10/23 15:05 RDW 14.3 % (12.0-15.0) 10/10/23 15:05 Plt Count 125 10^3/uL (130-450) L 10/10/23 15:05 MPV 11.6 fL (7.4-11.4) H 10/10/23 15:05 Neut # (Auto) 10.2 10^3/uL (1.5-6.6) H 10/10/23 15:05 Lymph # (Auto) 0.8 10^3/uL (1.5-3.5) L 10/10/23 15:05 [place] # (Auto) 0.9 10^3/uL (0.0-1.0) 10/10/23 15:05 Eos # (Auto) 0.0 10^3/uL (0.0-0.7) 10/10/23 15:05 Baso # (Auto) 0.0 10^3/uL (0.0-0.1) 10/10/23 15:05 Absolute Nucleated RBC 0.00 x10^3/uL 10/10/23 15:05 Nucleated RBC % 0.0 /100WBC 10/10/23 15:05 Sodium 141 mmol/L (135-145) 10/12/23 05:21 Potassium 4.0 mmol/L (3.5-4.5) 10/12/23 05:21 Chloride 110 mmol/L (101-111) 10/12/23 05:21 Carbon Dioxide 25 mmol/L (21-32) 10/12/23 05:21 Anion Gap 6.0 (6-13) 10/12/23 05:21 BUN 13 mg/dL (6-20) 10/12/23 05:21 Creatinine 1.2 mg/dL (0.6-1.3) 10/12/23 05:21 Estimated GFR (MDRD) 58 (>89) L 10/12/23 05:21 Glucose 148 mg/dL (74-104) H 10/12/23 05:21 POC Whole Bld Glucose 185 mg/dL (70 - 100) H 10/12/23 16:31 Lactic Acid 1.1 mmol/L (0.5-2.2) 10/10/23 15:12 Calcium 8.9 mg/dL (8.5-10.3) 10/12/23 05:21 Phosphorus 2.8 mg/dL (2.5-5.0) 10/12/23 05:21 Magnesium 1.7 mg/dL (1.7-2.3) 10/12/23 05:21 Total Bilirubin 1.1 mg/dL (0.2-1.0) H 10/10/23 15:05 AST 68 IU/L (10-42) H 10/10/23 15:05 ALT 70 IU/L (10-60) H 10/10/23 15:05 Alkaline Phosphatase 55 IU/L (42-121) 10/10/23 15:05 Total Protein 5.8 g/dL (6.4-8.9) L 10/10/23 15:05 Albumin 3.9 g/dL (3.2-5.5) 10/10/23 15:05 Globulin 1.9 g/dL (2.1-4.2) L 10/10/23 15:05 Albumin/Globulin Ratio 2.1 (1.0-2.2) 10/10/23 15:05 Lipase < 10 U/L (11-82) L 10/10/23 15:05 Urine Color YELLOW 10/10/23 16:20 Urine Clarity CLEAR (CLEAR) 10/10/23 16:20 Urine pH 6.0 PH (5.0-7.5) 10/10/23 16:20 Ur Specific [place] <=1.005 (1.002-1.030) 10/10/23 16:20 Urine Protein NEGATIVE mg/dL (NEGATIVE) 10/10/23 16:20 Urine Glucose (UA) NEGATIVE mg/dL (NEGATIVE) 10/10/23 16:20 Urine Ketones NEGATIVE mg/dL (NEGATIVE) 10/10/23 16:20 Urine Occult Blood NEGATIVE (NEGATIVE) 10/10/23 16:20 Urine Nitrite NEGATIVE (NEGATIVE) 10/10/23 16:20 Urine Bilirubin NEGATIVE (NEGATIVE) 10/10/23 16:20 Urine Urobilinogen 0.2 (NORMAL) E.U./dL (NORMAL) 10/10/23 16:20 Ur Leukocyte Esterase NEGATIVE (NEGATIVE) 10/10/23 16:20 Ur Microscopic Review NOT INDICATED 10/10/23 16:20 Urine Culture Comments NOT INDICATED 10/10/23 16:20
--- NOTE | 2023-10-13 22:53 | PROVIDER PROGRESS NOTE ---
Assessment/Plan - Problem List (1) E coli bacteremia Assessment/Plan: (2) Pseudomonas aeruginosa bacteremia Conclusion/Plan: Blood cultures drawn on October 08 grew out E. coli out of each bottle and 1 bottle grew out Pseudomonas. Plan is 14 days of IV antibiotics. A PICC line is in place. Arrangements are being made for patient to receive antibiotics as an outpatient. Patient to receive cefepime 2 g twice daily as an outpatient. Arrangements will be made for patient to be seen by infectious disease once he is discharged. (3) Atrial fibrillation Conclusion/Plan: Continue apixaban Restart metoprolol when appropriate. (4) Diabetes mellitus Conclusion/Plan: Continue outpatient dose of glargine 22 units each evening and sliding scale insulin - Current Meds Current Meds: Current Medications Generic Name Dose Route Start Last Admin Trade Name Freq PRN Reason Stop Dose Admin Apixaban 5 mg 10/11/23 09:00 10/13/23 21:31 Apixaban 5 Mg Tablet PO 5 mg BID MARY Administration Sodium Chloride 1,000 mls @ 100 mls/hr 10/10/23 20:00 10/13/23 12:52 Normal Saline 0.9% IV 100 mls/hr .Q10H MARY Administration Piperacillin Sod/Tazobactam 100 mls @ 200 mls/hr 10/11/23 15:00 10/13/23 22:36 Sod 3.375 gm/ Sodium Chloride IV Infused Q6H MARY Infusion Insulin Glargine-yfgn 26 unit 10/11/23 21:00 10/13/23 21:35 Insulin Glargine-Yfgn 300 Unit/3 Ml Pen SUBQ 26 unit HS MARY Administration Insulin Human Lispro 1 - 9 unit 10/11/23 12:00 10/13/23 21:36 Insulin Lispro 300 Unit/3 Ml Pen SUBQ 7 unit 0800,1200,1700,2100 [facility] Administration Protocol Insulin Human Lispro 5 unit 10/11/23 12:00 10/13/23 17:00 Insulin Lispro 300 Unit/3 Ml Pen SUBQ 5 unit TIDWM MARY Administration Protocol Sodium Chloride 10 ml 10/11/23 01:00 10/13/23 08:40 Sodium Chloride Flush 0.9% 10 Ml Syringe IVP Not Given 0100,0900,1700 [facility] Tamsulosin HCl 0.4 mg 10/11/23 21:00 10/13/23 21:31 Tamsulosin 0.4 Mg Capsule PO 0.4 mg HS MARY Administration - Lab Result Fish Bone Diagrams: 10/10/23 15:05 10/12/23 05:21 Subjective - Subjective Patient Reports: Other (Alert. Denies chest pain, shortness of breath and abdominal pain. No other complaints at this time.) Objective Vital Signs: Vital Signs - 24 hr 10/12/23 10/13/23 10/13/23 22:59 07:42 16:00 Temperature 37.0 C 36.7 C 36.8 C Heart Rate [ 60 63 63 Brachial] Respiratory 18 18 20 Rate Blood Pressure 132/67 H 168/72 H [Left Brachial artery] Blood Pressure 152/56 H [Right Brachial artery] O2 Saturation 96 96 96 Oxygen O2 Source Room air I&O (Last 24 Hrs): Intake and Output Totals x24h 10/11/23 10/12/23 10/13/23 23:59 23:59 23:59 Intake Total 3250 4234 3807.000 Balance 3250 4234 3807.000 General: Alert, Oriented x3 HEENT: Atraumatic Neck: Supple, No JVD Neuro: Alert, Non Focal Cardiovascular: Other (Positive S1-S2 no extra heart sounds.) Respiratory: Other (Good air exchange in all lung dye no wheezing no crackles.) Abdomen: Other (Soft nontender positive bowel sounds) Extremities: No cyanosis, No edema Skin: No rashes - Results Results: Laboratory Results WBC 12.0 x10^3/uL (4.8-10.8) H 10/10/23 15:05 RBC 4.45 10^6/uL (4.70-6.10) L 10/10/23 15:05 Hgb 13.0 g/dL (14.0-18.0) L 10/10/23 15:05 Hct 39.6 % (42.0-52.0) L 10/10/23 15:05 MCV 89.0 fL (80.0-94.0) 10/10/23 15:05 MCH 29.2 pg (27.0-31.0) 10/10/23 15:05 MCHC 32.8 g/dL (32.0-36.0) 10/10/23 15:05 RDW 14.3 % (12.0-15.0) 10/10/23 15:05 Plt Count 125 10^3/uL (130-450) L 10/10/23 15:05 MPV 11.6 fL (7.4-11.4) H 10/10/23 15:05 Neut # (Auto) 10.2 10^3/uL (1.5-6.6) H 10/10/23 15:05 Lymph # (Auto) 0.8 10^3/uL (1.5-3.5) L 10/10/23 15:05 [place] # (Auto) 0.9 10^3/uL (0.0-1.0) 10/10/23 15:05 Eos # (Auto) 0.0 10^3/uL (0.0-0.7) 10/10/23 15:05 Baso # (Auto) 0.0 10^3/uL (0.0-0.1) 10/10/23 15:05 Absolute Nucleated RBC 0.00 x10^3/uL 10/10/23 15:05 Nucleated RBC % 0.0 /100WBC 10/10/23 15:05 Sodium 141 mmol/L (135-145) 10/12/23 05:21 Potassium 4.0 mmol/L (3.5-4.5) 10/12/23 05:21 Chloride 110 mmol/L (101-111) 10/12/23 05:21 Carbon Dioxide 25 mmol/L (21-32) 10/12/23 05:21 Anion Gap 6.0 (6-13) 10/12/23 05:21 BUN 13 mg/dL (6-20) 10/12/23 05:21 Creatinine 1.2 mg/dL (0.6-1.3) 10/12/23 05:21 Estimated GFR (MDRD) 58 (>89) L 10/12/23 05:21 Glucose 148 mg/dL (74-104) H 10/12/23 05:21 POC Whole Bld Glucose 276 mg/dL (70 - 100) H 10/13/23 20:49 Lactic Acid 1.1 mmol/L (0.5-2.2) 10/10/23 15:12 Calcium 8.9 mg/dL (8.5-10.3) 10/12/23 05:21 Phosphorus 2.8 mg/dL (2.5-5.0) 10/12/23 05:21 Magnesium 1.7 mg/dL (1.7-2.3) 10/12/23 05:21 Total Bilirubin 1.1 mg/dL (0.2-1.0) H 10/10/23 15:05 AST 68 IU/L (10-42) H 10/10/23 15:05 ALT 70 IU/L (10-60) H 10/10/23 15:05 Alkaline Phosphatase 55 IU/L (42-121) 10/10/23 15:05 Total Protein 5.8 g/dL (6.4-8.9) L 10/10/23 15:05 Albumin 3.9 g/dL (3.2-5.5) 10/10/23 15:05 Globulin 1.9 g/dL (2.1-4.2) L 10/10/23 15:05 Albumin/Globulin Ratio 2.1 (1.0-2.2) 10/10/23 15:05 Lipase < 10 U/L (11-82) L 10/10/23 15:05 Urine Color YELLOW 10/10/23 16:20 Urine Clarity CLEAR (CLEAR) 10/10/23 16:20 Urine pH 6.0 PH (5.0-7.5) 10/10/23 16:20 Ur Specific [place] <=1.005 (1.002-1.030) 10/10/23 16:20 Urine Protein NEGATIVE mg/dL (NEGATIVE) 10/10/23 16:20 Urine Glucose (UA) NEGATIVE mg/dL (NEGATIVE) 10/10/23 16:20 Urine Ketones NEGATIVE mg/dL (NEGATIVE) 10/10/23 16:20 Urine Occult Blood NEGATIVE (NEGATIVE) 10/10/23 16:20 Urine Nitrite NEGATIVE (NEGATIVE) 10/10/23 16:20 Urine Bilirubin NEGATIVE (NEGATIVE) 10/10/23 16:20 Urine Urobilinogen 0.2 (NORMAL) E.U./dL (NORMAL) 10/10/23 16:20 Ur Leukocyte Esterase NEGATIVE (NEGATIVE) 10/10/23 16:20 Ur Microscopic Review NOT INDICATED 10/10/23 16:20 Urine Culture Comments NOT INDICATED 10/10/23 16:20
[2023-10-14] MEDS: hydrALAZINE INJ 20 MG/ML VIAL IVP ONE (00:22)
--- NOTE | 2023-10-14 07:44 | PROVIDER PROGRESS NOTE ---
Assessment/Plan - Problem List (1) E coli bacteremia Assessment/Plan: (2) Pseudomonas aeruginosa bacteremia Conclusion/Plan: Blood cultures drawn on October 08 grew out E. coli out of each bottle and 1 bottle grew out Pseudomonas. Plan is 14 days of IV antibiotics. He has a PICC in place. Arrangements are being made for patient to receive antibiotics as an outpatient. Patient to receive cefepime 2 g twice daily as an outpatient. Arrangements will be made for patient to be seen by infectious disease once he is discharged. (3) Atrial fibrillation Conclusion/Plan: Continue apixaban Restart Metoprolol and amlodipine. (4) Diabetes mellitus Conclusion/Plan: Continue outpatient dose of glargine 22 units each evening and sliding scale insulin - Current Meds Current Meds: Current Medications Generic Name Dose Route Start Last Admin Trade Name Freq PRN Reason Stop Dose Admin Apixaban 5 mg 10/11/23 09:00 10/13/23 21:31 Apixaban 5 Mg Tablet PO 5 mg BID MARY Administration Sodium Chloride 1,000 mls @ 100 mls/hr 10/10/23 20:00 10/14/23 03:36 Normal Saline 0.9% IV 100 mls/hr .Q10H MARY Infusion Piperacillin Sod/Tazobactam 100 mls @ 200 mls/hr 10/11/23 15:00 10/14/23 03:36 Sod 3.375 gm/ Sodium Chloride IV Infused Q6H MARY Infusion Insulin Glargine-yfgn 26 unit 10/11/23 21:00 10/13/23 21:35 Insulin Glargine-Yfgn 300 Unit/3 Ml Pen SUBQ 26 unit HS MARY Administration Insulin Human Lispro 1 - 9 unit 10/11/23 12:00 10/13/23 21:36 Insulin Lispro 300 Unit/3 Ml Pen SUBQ 7 unit 0800,1200,1700,2100 MARY Administration Protocol Insulin Human Lispro 5 unit 10/11/23 12:00 10/13/23 17:00 Insulin Lispro 300 Unit/3 Ml Pen SUBQ 5 unit TIDWM MARY Administration Protocol Sodium Chloride 10 ml 10/11/23 01:00 10/13/23 23:45 Sodium Chloride Flush 0.9% 10 Ml Syringe IVP 10 ml 0100,0900,1700 MARY Administration Tamsulosin HCl 0.4 mg 10/11/23 21:00 10/13/23 21:31 Tamsulosin 0.4 Mg Capsule PO 0.4 mg HS [facility] Administration - Lab Result Fish Bone Diagrams: 10/10/23 15:05 10/12/23 05:21 - Additional Planning My Orders: My Active Orders 10/14/23 09:00 Metoprolol Tartrate [Lopressor] 25 mg PO BID amLODIPine [Norvasc] 5 mg PO DAILY Subjective - Subjective Patient Reports: Other (Alert. He denies chest pain shortness of breath. He has no other complaints at this time.) Objective Vital Signs: Vital Signs - 24 hr 10/13/23 10/13/23 10/14/23 16:00 23:39 00:22 Temperature 36.8 C 37.2 C Heart Rate [ 63 63 Brachial] Respiratory 20 18 Rate Blood Pressure 162/81 H Blood Pressure 168/72 H 182/85 H [Left Brachial artery] O2 Saturation 96 96 10/14/23 10/14/23 10/14/23 00:29 00:33 00:40 Temperature Heart Rate [ Brachial] Respiratory Rate Blood Pressure Blood Pressure 139/82 H 146/75 H 126/79 [Left Brachial artery] O2 Saturation 10/14/23 10/14/23 10/14/23 00:55 01:10 01:25 Temperature Heart Rate [ Brachial] Respiratory Rate Blood Pressure Blood Pressure 144/74 H 138/78 H 150/69 H [Left Brachial artery] O2 Saturation Oxygen O2 Source Room air I&O (Last 24 Hrs): Intake and Output Totals x24h 10/12/23 10/13/23 10/14/23 23:59 23:59 23:59 Intake Total 4234 4807.000 441.667 Balance 4234 4807.000 441.667 General: Alert, Oriented x3, No acute distress Neck: No JVD Neuro: Alert, Non Focal Cardiovascular: Other (Positive S1-S2 no extra heart sounds.) Respiratory: Other (Good air exchange in all lung dye no wheezing no crackles.) Abdomen: Other (Soft nontender tender nondistended positive bowel) Extremities: No cyanosis, No edema Skin: No rashes - Results Results: Laboratory Results WBC 12.0 x10^3/uL (4.8-10.8) H 10/10/23 15:05 RBC 4.45 10^6/uL (4.70-6.10) L 10/10/23 15:05 Hgb 13.0 g/dL (14.0-18.0) L 10/10/23 15:05 Hct 39.6 % (42.0-52.0) L 10/10/23 15:05 MCV 89.0 fL (80.0-94.0) 10/10/23 15:05 MCH 29.2 pg (27.0-31.0) 10/10/23 15:05 MCHC 32.8 g/dL (32.0-36.0) 10/10/23 15:05 RDW 14.3 % (12.0-15.0) 10/10/23 15:05 Plt Count 125 10^3/uL (130-450) L 10/10/23 15:05 MPV 11.6 fL (7.4-11.4) H 10/10/23 15:05 Neut # (Auto) 10.2 10^3/uL (1.5-6.6) H 10/10/23 15:05 Lymph # (Auto) 0.8 10^3/uL (1.5-3.5) L 10/10/23 15:05 [place] # (Auto) 0.9 10^3/uL (0.0-1.0) 10/10/23 15:05 Eos # (Auto) 0.0 10^3/uL (0.0-0.7) 10/10/23 15:05 Baso # (Auto) 0.0 10^3/uL (0.0-0.1) 10/10/23 15:05 Absolute Nucleated RBC 0.00 x10^3/uL 10/10/23 15:05 Nucleated RBC % 0.0 /100WBC 10/10/23 15:05 Sodium 141 mmol/L (135-145) 10/12/23 05:21 Potassium 4.0 mmol/L (3.5-4.5) 10/12/23 05:21 Chloride 110 mmol/L (101-111) 10/12/23 05:21 Carbon Dioxide 25 mmol/L (21-32) 10/12/23 05:21 Anion Gap 6.0 (6-13) 10/12/23 05:21 BUN 13 mg/dL (6-20) 10/12/23 05:21 Creatinine 1.2 mg/dL (0.6-1.3) 10/12/23 05:21 Estimated GFR (MDRD) 58 (>89) L 10/12/23 05:21 Glucose 148 mg/dL (74-104) H 10/12/23 05:21 POC Whole Bld Glucose 86 mg/dL (70 - 100) 10/14/23 07:30 Lactic Acid 1.1 mmol/L (0.5-2.2) 10/10/23 15:12 Calcium 8.9 mg/dL (8.5-10.3) 10/12/23 05:21 Phosphorus 2.8 mg/dL (2.5-5.0) 10/12/23 05:21 Magnesium 1.7 mg/dL (1.7-2.3) 10/12/23 05:21 Total Bilirubin 1.1 mg/dL (0.2-1.0) H 10/10/23 15:05 AST 68 IU/L (10-42) H 10/10/23 15:05 ALT 70 IU/L (10-60) H 10/10/23 15:05 Alkaline Phosphatase 55 IU/L (42-121) 10/10/23 15:05 Total Protein 5.8 g/dL (6.4-8.9) L 10/10/23 15:05 Albumin 3.9 g/dL (3.2-5.5) 10/10/23 15:05 Globulin 1.9 g/dL (2.1-4.2) L 10/10/23 15:05 Albumin/Globulin Ratio 2.1 (1.0-2.2) 10/10/23 15:05 Lipase < 10 U/L (11-82) L 10/10/23 15:05 Urine Color YELLOW 10/10/23 16:20 Urine Clarity CLEAR (CLEAR) 10/10/23 16:20 Urine pH 6.0 PH (5.0-7.5) 10/10/23 16:20 Ur Specific [place] <=1.005 (1.002-1.030) 10/10/23 16:20 Urine Protein NEGATIVE mg/dL (NEGATIVE) 10/10/23 16:20 Urine Glucose (UA) NEGATIVE mg/dL (NEGATIVE) 10/10/23 16:20 Urine Ketones NEGATIVE mg/dL (NEGATIVE) 10/10/23 16:20 Urine Occult Blood NEGATIVE (NEGATIVE) 10/10/23 16:20 Urine Nitrite NEGATIVE (NEGATIVE) 10/10/23 16:20 Urine Bilirubin NEGATIVE (NEGATIVE) 10/10/23 16:20 Urine Urobilinogen 0.2 (NORMAL) E.U./dL (NORMAL) 10/10/23 16:20 Ur Leukocyte Esterase NEGATIVE (NEGATIVE) 10/10/23 16:20 Ur Microscopic Review NOT INDICATED 10/10/23 16:20 Urine Culture Comments NOT INDICATED 10/10/23 16:20
[2023-10-14] MEDS: METOPROLOL TARTRATE 25 MG TABLET PO SCH (08:01)
[2023-10-14] MEDS: amLODIPine 5 MG TABLET PO SCH (08:01)
[2023-10-14] MEDS: NAPROXEN 250 MG TABLET PO PRN (12:30)
[2023-10-15 05:17] LABS: BASOPHILS % (AUTO) 0.7 %; EOSINOPHILS # (AUTO) 0.2 10^3/uL (0.0-0.7); EOSINOPHILS % (AUTO) 3.2 %; HCT - HEMATOCRIT 38.9 % (42.0-52.0); HGB - HEMOGLOBIN 12.6 g/dL (14.0-18.0); LYMPHOCYTES # (AUTO) 1.4 10^3/uL (1.5-3.5); LYMPHOCYTES % (AUTO) 25.6 %; MEAN CORPUSCULAR HEMOGLOBIN 28.6 pg (27.0-31.0); MEAN CORPUSCULAR HGB CONC 32.4 g/dL (32.0-36.0); MEAN CORPUSCULAR VOLUME 88.4 fL (80.0-94.0); MEAN PLATELET VOLUME 11.2 fL (7.4-11.4); MONOCYTES # (AUTO) 0.5 10^3/uL (0.0-1.0); MONOCYTES % (AUTO) 9.6 %; NEUTROPHILS # (AUTO) 3.4 10^3/uL (1.5-6.6); NEUTROPHILS % (AUTO) 60.2 %; PLT - PLATELET COUNT 155 10^3/uL (130-450); RED CELL DISTRIBUTION WIDTH 13.9 % (12.0-15.0); WHITE BLOOD COUNT 5.6 x10^3/uL (4.8-10.8)
[2023-10-15 05:49] LABS: MAGNESIUM 1.6 mg/dL (1.7-2.3)
[2023-10-15 05:55] LABS: PHOSPHORUS 3.5 mg/dL (2.5-5.0)
--- NOTE | 2023-10-15 13:35 | Discharge Plan ---
Discharge Plan Problem Reviewed?: Yes Disposition: Home, Self Care Condition: Good Prescriptions: Saccharomyces Boulardii [Saccharomycin Df] 250 mg PO BID #60 cap Diet: Diabetic Activity Restrictions: Activity as Tolerated Shower Restrictions: No Driving Restrictions: No Weight Bearing: Full Weight Instruction Topics: Cefepime injection, ED Bacteremia Rule Out Ch, ED Bacteremia Rule Out Health Concerns: Ronal Morris is an 83-year-old who was called back to the emergency room for positive blood cultures. He was seen on October 09, 2023 in the emergency room with complaints of weakness. He reports some shaking chills and cough. Patient reports she has had 2 episodes of positive blood cultures in the past. He underwent a cholecystectomy in 2020. He reports he has not had an episode status post his cholecystectomy up to this point. Patient has a history of cardiac disease and has a pacemaker in place. He also has a past medical history significant for type 2 diabetes mellitus. Mr. Morris was admitted to the hospital and treatment was initiated with ceftriaxone for E. coli bacteremia. Blood culture final results were also positive for Pseudomonas aeruginosa in 1 bottle. Antibiotics were changed to Zosyn at that time. A PICC line was placed on October 12, 2023. Arrangements have been made for him to receive 10 days of cefepime 2 g twice daily intravenously as an outpatient.He is stable for discharge. Plan of Treatment: 1. Take all medications as prescribed. 2. Please complete course of IV antibiotics. You will receive cefepime twice daily for 10 days as an outpatient. . 3. Please follow-up with your primary care provider Dr. Maciel. 4. Recommend you see a infectious disease specialist as an outpatient. Recommend scheduling an appointment with Dr. Shantal Wesley at [facility] Care Goals: Goal of care to resolve bacteria and return to baseline. Assessment: (1) E coli bacteremia Assessment/Plan: (2) Pseudomonas aeruginosa bacteremia Conclusion/Plan: Blood cultures drawn on October 08 grew out E. coli out of each bottle and 1 bottle grew out Pseudomonas. Plan is a total 14 days of IV antibiotics.Patient has received 4 days of Zosyn as an inpatient and will receive cefepime for 10 days as an outpatient. He has a PICC in place. Arrangements are being made for patient to receive antibiotics as an outpatient. Patient to receive cefepime 2 g twice daily as an outpatient. We will attempt to make arrangements will be made for patient to be seen by infectious disease once he is discharged. (3) Atrial fibrillation Conclusion/Plan: Continue apixaban Restart Metoprolol and amlodipine. (4) Diabetes mellitus Conclusion/Plan: Continue outpatient dose of glargine 22 units each evening and sliding scale insulin No Smoking: If you smoke, Please STOP! Call for help. Follow-up with: AMINAH MACIEL MD [Primary Care Provider] -
--- NOTE | 2023-10-15 13:35 | DISCHARGE SUMMARY ---
Discharge Summary Admit Date: 10/10/23 Discharge Date: 10/15/23 Discharging Provider: Drake Shanks MD Code Status: Do Not Attempt Resuscitation Condition at Discharge: Good Discharge Disposition: 01 Home, Self Care Discharge Facility Name: [facility] - DIAGNOSES Admission Diagnoses: (1) E coli bacteremia (2) Atrial fibrillation (3) Diabetes mellitus Discharge Diagnoses with Status of Each Condition: (1) E coli bacteremia (2) Pseudomonas aeruginosa bacteremia (3) Atrial fibrillation (4) Diabetes mellitus - HPI History of Present Illness: Ronal Morris is an 83-year-old who was called back to the emergency room for positive blood cultures. He was seen on October 09, 2023 in the emergency room with complaints of weakness. He reports some shaking chills and cough. Patient reports she has had 2 episodes of positive blood cultures in the past. He underwent a cholecystectomy in 2020. He reports he has not had an episode status post his cholecystectomy up to this point. Patient has a history of cardiac disease and has a pacemaker in place. He also has a past medical history significant for type 2 diabetes mellitus. - HOSPITAL COURSE Hospital Course: Mr. Morris was admitted to the hospital and treatment was initiated with ceftriaxone for E. coli bacteremia. Blood culture final results were also positive for Pseudomonas aeruginosa in 1 bottle. Antibiotics were changed to Zosyn at that time. A PICC line was placed on October 12, 2023. is an 83-year-old man initiating treatment with levofloxacin by mouth was ente rtained but EKG revealed a prolonged QT interval which excluded levofloxacin as a possible treatment. Arrangements have been made for him to receive 10 days of cefepime 2 g twice daily intravenously as an outpatient.He is stable for discharge. - ALLERGIES Allergies/Adverse Reactions: Allergies Allergy/AdvReac Type Severity Reaction Status Date / Time No Known Drug Allergies Allergy Verified 10/10/23 14:46 - MEDICATIONS Home Medications: Ambulatory Orders Medication Instructions Recorded Confirmed Insulin Glargine [Lantus Solostar] 22 units SUBQ HS 02/23/14 10/11/23 Insulin Aspart [Novolog Flexpen] 12 - 15 units SUBQ TIDWM 02/24/14 10/11/23 Apixaban [Eliquis] 5 mg PO BID 01/10/23 10/10/23 Metoprolol Tartrate [Lopressor] 25 mg PO BID 01/10/23 10/10/23 Rosuvastatin Calcium 20 mg PO HS 01/10/23 10/10/23 Tamsulosin [Flomax] 1 cap PO HS 01/10/23 10/10/23 amLODIPine [Norvasc] 5 mg PO DAILY 10/11/23 10/11/23 Cefepime 2 gm IV BID ml 10/15/23 - PHYSICAL EXAM AT DISCHARGE General Appearance: positive: No acute distress, Alert Eyes Bilateral: positive: No lid inflammation, Conjunctivae nml Neck: positive: No JVD, Trachea midline Respiratory: positive: Other (Good air exchange in all lung dye no wheezing no crackles.) Cardiovascular: positive: Other (Positive S1-S2 no extra heart sounds.) Abdomen: positive: Other (Soft nondistended positive bowel sounds) Skin: positive: No rash Extremities: positive: Non-tender, No pedal edema Neurologic/Psychiatric: positive: Oriented x3, Motor nml - LABS Result Diagrams: 10/15/23 04:27 10/12/23 05:21 - FOLLOW UP Follow Up: Follow-up with Jaylan Swanson MD in 2-4 weeks. Recommend arranging for f ollow-up within infectious disease specialist. We will attempt to arrange an appointment for you to see Dr. Shantal Wesley at [facility]. - TIME SPENT Time Spent in Discharge (Minutes): 32 (I spent 32 minutes coordinating the discharge for Mr. Ronal Morris. )
[2023-10-15] MEDS: MAGNESIUM OXIDE 400 MG TABLET PO SCH (13:53)
[2023-10-15] MEDS: CEFEPIME 2 GM in SODIUM CHLORIDE 0.9% MINIBAG 100 ML IV SCH (14:46)
[2023-10-15 15:52] VITALS: BP 156/84; O2SAT 97
== END 2023-10-15 16:00 | disposition home or self-care (01) | DRG 872 ==
LOC: ED 14:38 → MS2 18:49
PROVIDERS: ADMIT Internal Medicine; ATTEND Internal Medicine
PROC: 02HV33Z Insertion of Infusion Device into Superior Vena Cava, Percutaneous Approach (ICD-10-PCS; principal; 2023-10-12)
DX: R78.81 Bacteremia (principal); D72.829 Elevated white blood cell count, unspecified; A49.8 Other bacterial infections of unspecified site; R74.8 Abnormal levels of other serum enzymes; B96.20 Unspecified Escherichia coli [E. coli] as the cause of diseases classified elsewhere; I10 Essential (primary) hypertension; I48.91 Unspecified atrial fibrillation; E11.9 Type 2 diabetes mellitus without complications; B96.5 Pseudomonas (aeruginosa) (mallei) (pseudomallei) as the cause of diseases classified elsewhere; I25.10 Atherosclerotic heart disease of native coronary artery without angina pectoris; I11.9 Hypertensive heart disease without heart failure; N40.0 Benign prostatic hyperplasia without lower urinary tract symptoms; K76.0 Fatty (change of) liver, not elsewhere classified; Z79.01 Long term (current) use of anticoagulants; Z79.4 Long term (current) use of insulin; Z95.0 Presence of cardiac pacemaker; Z90.49 Acquired absence of other specified parts of digestive tract
CPT/HCPCS: 36415; 71260; 74177; 80048; 80053; 81003; 83605; 83690; 83735; 84100; 85025; 87040; 93005; 96365; 99285; A9270; J1815; Q9967; 81001; 87086

== ENCOUNTER 2024-01-08 11:12 | Outpatient (CLI) | payer MEDICARE, OTHER ==
[2024-01-08 11:45] LABS: CHOL/HDL RATIO 2.8 (<5.0); CHOLESTEROL 93 mg/dL; HDL CHOLESTEROL 33 mg/dL; LDL CHOLESTEROL,CALCULATED 42 mg/dL; LDL/HDL RATIO 1.3 (<3.6); TRIGLYCERIDES 88 mg/dL; VLDL CHOLESTEROL 18 mg/dL
== END 2024-01-08 11:13 | disposition home or self-care (01) ==
LOC: LAB 11:12
DX: E78.5 Hyperlipidemia, unspecified (principal)
CPT/HCPCS: 36415; 80061; 83721